=== PATIENT | male | born 1940 | race Two or more races ===

== ENCOUNTER 2024-01-10 19:01 | Inpatient (IN) | payer MEDICARE, MEDICAID ==
[~2024-01-10] VITALS: Ht 180.3 cm; Wt 104.5 kg
[~2024-01-10 19:01] MED LIST: ALLO100T PO; AMLO1TAB21 PO; ATOR20TA PO; BACL10TA PO; FLUT1AER3 IN; FURO1TAB77 PO; METO5TAB5 PO; NALO1TAB4 PO; OXYC15TA77 PO; POTA-228 PO; SPIR25TA8 PO; WARF4TAB70 PO
[2024-01-10] MEDS: SODIUM CHLORIDE 0.9% 500 ML IVB ONE (20:06)
[2024-01-10 20:11] LABS: Basophils # (auto) 0 10 ^3/uL (0-0.2); Basophils % (auto) 0.1 % (0.0-2.0); Eosinophils # (auto) 0 10 ^3/uL (0-0.8); Hematocrit 37.5 % (41.0-53.0); Hemoglobin 12.5 g/dL (13.5-17.5); Lymphocytes # (auto) 1.2 10 ^3/uL (0.4-5.4); Lymphocytes % (auto) 6.6 % (10.0-50.0); Mean Corpuscular Hgb Conc. 33.3 g/dL (32.0-36.0); Mean Corpuscular Volume 102.4 fL (80.0-100.0); Monocytes % (auto) 5.7 % (0.0-12.0); Neutrophils # (auto) 15.4 10 ^3/uL (1.6-8.6); Neutrophils % (auto) 87.6 % (37.0-80.0); Nucleated Red Blood Cells % 0.1 %; Platelet Count (auto) 196 10^3/uL (140-450); Red Blood Cells 3.66 10^6/uL (4.5-5.90); Red Cell Distribution Width 15.2 % (11.8-14.3); White Blood Cell 17.6 10^3/uL (4.4-10.8)
[2024-01-10 20:15] LABS: Base Excess 1.6 mmol/L (-2.0-3.0)
[2024-01-10 20:31] LABS: Alanine Aminotransferase 15 U/L (7-40); Albumin 4.3 g/dL (3.2-4.8); Alkaline Phosphatase 107 U/L (46-116); Anion Gap 10 (5-15); Aspartate Aminotransferase 32 U/L (13-40); BUN/Creatinine Ratio 11.3 (10.0-20.0); Blood Alcohol < 3.0 mg/dL (<10); Blood Urea Nitrogen 17 mg/dL (9-23); Calcium 9.5 mg/dL (8.7-10.4); Carbon Dioxide 23 mmol/L (20-31); Chloride 112 mmol/L (98-107); Glucose 125 mg/dL (74-106); Potassium 3.2 mmol/L (3.5-5.1); Sodium 145 mmol/L (136-145)
[2024-01-10 20:32] LABS: Bilirubin, Total 1.5 mg/dL (0.2-1.0)
[2024-01-10] MEDS: cefTRIAXone 1GM/50ML D5W 50 ML IV ONE (21:28)
[2024-01-10] MEDS ORDERED: IPRATROPIUM BROM 0.5 MG/2.5ML INH SOL NEB PRN (22:15)
[2024-01-10] MEDS ORDERED: DEXTROSE (50%) 50ML SYRG IV PRN (22:15)
[2024-01-10] MEDS ORDERED: ONDANSETRON HCL 4 MG/2 ML VIAL IV PRN (22:15)
[2024-01-10] MEDS ORDERED: ALBUTEROL SULF 2.5 MG/0.5ML(0.5%) NEB SOLN NEB PRN (22:15)
[2024-01-10] MEDS ORDERED: PIPERACILLIN-TAZOB 3.375GM 100 ML IV ONE (22:15)
[2024-01-10] MEDS ORDERED: VANCOMYCIN PER PHARMACY 0 MG IV SCH (22:30)
[2024-01-10 22:32] LABS: Urine Bacteria None Seen /hpf (None Seen)
[2024-01-10] MEDS: VANCOMYCIN 1GM/200ML PREMIX 250 ML IV ONE (22:44)
[2024-01-10] MEDS: SODIUM CHLORIDE 0.9% 500 ML IV ONE (22:45)
[2024-01-10 22:49] LABS: Folate (Folic Acid) 8.22 ng/mL (>5.38)
[2024-01-10] MEDS: POTASSIUM CHL 20MEQ/100ML 100 ML IV SCH (22:51)
[2024-01-10 22:56] LABS: Urine Blood 2+ /uL (Negative); Urine Clarity Clear (Clear); Urine Color Light-Yellow (Yellow); Urine Hyaline Cast FEW /lpf (0 - 2); Urine Mucus FEW (None Seen); Urine Protein, UAD TRACE (Negative); Urine Specific Gravity 1.014 (1.001-1.035); Urine Urobilinogen Normal (Negative); Urine WBC <1 /hpf (0 - 3)
[2024-01-10 22:58] LABS: Amphetamine Screen, Urine Neg (NEGATIVE); Barbiturate Scree,Urine Neg (NEGATIVE); Benzodiazephine Screen, Urine Neg (NEGATIVE); Cocaine Screen, Urine Neg (NEGATIVE); Opiate Scree,Urine Neg (NEGATIVE); Phencyclidine Screen, Urine Neg (NEGATIVE)
[2024-01-10 22:59] LABS: Cannabinoid Screen, Urine Neg (NEGATIVE)
[2024-01-10] MEDS ORDERED: DOXYCYCLINE 100MG/250ML 250 ML IV SCH (23:00)
[2024-01-10] MEDS: ENOXAPARIN SOD 120 MG/0.8 ML SYRINGE SC ONE (23:23)
[2024-01-11] VITALS (12 sets, daily range): BP systolic 113–142; BP diastolic 56–78; PULSE 66–88; RESP 16–23; TEMP 97.7–99.9; O2SAT 90–98
[2024-01-11] MEDS: ACCU-CHEK COMFORT CURVE STRIP VI SCH
[2024-01-11 00:57] LABS: Rapid Influenza A Negative (Negative); Rapid Influenza B Negative (Negative)
[2024-01-11 00:58] LABS: COVID19 ANTIGEN SOFIA FIA NEGATIVE (NEGATIVE)
[2024-01-11] MEDS: IOHEXOL 350 MG/ML 100ML IJ ONE (01:22)
[2024-01-11] MEDS: InsuLIN REG 1unit/0.01ml Soln (100units/ml) SC SCH (01:37)
[2024-01-11] MEDS: ENOXAPARIN SOD 120 MG/0.8 ML SYRINGE SC SCH (02:14)
[2024-01-11 05:38] LABS: Basophils # (auto) 0 10 ^3/uL (0-0.2); Basophils % (auto) 0.1 % (0.0-2.0); Eosinophils # (auto) 0 10 ^3/uL (0-0.8); Eosinophils % (auto) 0.1 % (0.0-7.0); Hematocrit 33.6 % (41.0-53.0); Hemoglobin 11.4 g/dL (13.5-17.5); Lymphocytes % (auto) 6.2 % (10.0-50.0); Mean Corpuscular Hemoglobin 34.5 pg (28.0-32.0); Mean Corpuscular Hgb Conc. 33.9 g/dL (32.0-36.0); Mean Corpuscular Volume 101.7 fL (80.0-100.0); Monocytes # (auto) 0.8 10 ^3/uL (0-1.3); Monocytes % (auto) 5.2 % (0.0-12.0); Neutrophils # (auto) 14.2 10 ^3/uL (1.6-8.6); Neutrophils % (auto) 88.4 % (37.0-80.0); Platelet Count (auto) 178 10^3/uL (140-450); Red Cell Distribution Width 15.1 % (11.8-14.3)
[2024-01-11] MEDS ORDERED: PIPERACILLIN-TAZOB 3.375GM 100 ML IV SCH (06:00)
[2024-01-11 06:33] LABS: Alanine Aminotransferase 14 U/L (7-40); Albumin 3.7 g/dL (3.2-4.8); Alkaline Phosphatase 98 U/L (46-116); Anion Gap 10 (5-15); Aspartate Aminotransferase 33 U/L (13-40); BUN/Creatinine Ratio 16.3 (10.0-20.0); Blood Urea Nitrogen 20 mg/dL (9-23); Calcium 8.8 mg/dL (8.7-10.4); Carbon Dioxide 23 mmol/L (20-31); Chloride 113 mmol/L (98-107); Glucose 113 mg/dL (74-106); Potassium 3.3 mmol/L (3.5-5.1); Sodium 146 mmol/L (136-145); Total Protein 6.8 g/dL (5.7-8.2)
[2024-01-11] MEDS: VANCOMYCIN 1GM/200ML PREMIX 250 ML IV SCH (09:09)
[2024-01-11] MEDS ORDERED: MEROPENEM 1GM IVPB 50 ML IV SCH (10:00)
[2024-01-11] MEDS ORDERED: ENOXAPARIN SOD 40 MG/0.4 ML SYRINGE SC SCH (10:00)
[2024-01-11] MEDS: MEROPENEM 1GM IVPB 50 ML IV SCH (10:14)
[2024-01-11] MEDS: FUROSEMIDE 40 MG/4 ML VIAL IV SCH (18:07)
[2024-01-12] VITALS (9 sets, daily range): BP systolic 114–150; BP diastolic 62–76; PULSE 59–88; RESP 16–20; TEMP 97.6–98.8; O2SAT 94–96
[2024-01-12 04:38] LABS: Basophils # (auto) 0 10 ^3/uL (0-0.2); Eosinophils # (auto) 0.2 10 ^3/uL (0-0.8); Lymphocytes # (auto) 1.9 10 ^3/uL (0.4-5.4); Mean Corpuscular Hgb Conc. 33.6 g/dL (32.0-36.0)
[2024-01-12 04:40] LABS: Basophils % (auto) 0.5 % (0.0-2.0); Eosinophils % (auto) 2.3 % (0.0-7.0); Hematocrit 33.5 % (41.0-53.0); Hemoglobin 11.2 g/dL (13.5-17.5); Lymphocytes % (auto) 21.1 % (10.0-50.0); Mean Corpuscular Volume 101.3 fL (80.0-100.0); Monocytes # (auto) 0.6 10 ^3/uL (0-1.3); Monocytes % (auto) 6.4 % (0.0-12.0); Neutrophils # (auto) 6.2 10 ^3/uL (1.6-8.6); Neutrophils % (auto) 69.7 % (37.0-80.0); Platelet Count (auto) 197 10^3/uL (140-450); Red Blood Cells 3.31 10^6/uL (4.5-5.90); Red Cell Distribution Width 15.3 % (11.8-14.3)
[2024-01-12] MEDS: POTASSIUM CHL 20MEQ/100ML 100 ML IV SCH (05:44)
[2024-01-12 07:42] LABS: INR 2.72 (0.9-1.15); Partial Thromboplastin Time 61.2 SEC (24.5-34.5); Prothrombin Time 26.8 sec (9.3-11.8)
[2024-01-12 07:53] LABS: Chloride 113 mmol/L (98-107); Potassium 3.2 mmol/L (3.5-5.1); Sodium 147 mmol/L (136-145)
[2024-01-12 07:54] LABS: Anion Gap 8 (5-15); Calcium 8.7 mg/dL (8.7-10.4); Carbon Dioxide 26 mmol/L (20-31)
[2024-01-12 07:59] LABS: BUN/Creatinine Ratio 17.7 (10.0-20.0); Blood Urea Nitrogen 20 mg/dL (9-23); Glucose 84 mg/dL (74-106)
[2024-01-12] MEDS ORDERED: VANCOMYCIN 1GM/200ML PREMIX 200 ML IV SCH (09:45)
[2024-01-12] MEDS: SPIRONOLACTONE 25 MG TAB PO SCH (09:57)
[2024-01-12] MEDS: amLODIPine BESYLATE 5 MG TAB PO SCH (09:58)
[2024-01-12] MEDS: VANCOMYCIN 1GM/200ML PREMIX IV SCH (10:13)
[2024-01-12] MEDS: POTASSIUM CHLORIDE 60 MEQ, LIDOCAINE 1% (LOCAL ANESTH.) 6 ML in SODIUM CHL 0.9% 500 ML IV ONE (10:14)
[2024-01-12 15:40] LABS: INR 2.42 (0.9-1.15); Partial Thromboplastin Time 50.8 SEC (24.5-34.5)
[2024-01-12] MEDS ORDERED: CHOL1TAB30 PO (17:18)
[2024-01-12] MEDS: OXYCODONE W/ ACETAMINOPHEN 5/325MG TABLET PO PRN (18:49)
[2024-01-12] MEDS: POTASSIUM CHL 20 Meq TABLET PO ONE (19:42)
[2024-01-12] MEDS: ATORVASTATIN 20 MG TAB PO SCH (22:33)
[2024-01-13] VITALS (9 sets, daily range): BP systolic 107–137; BP diastolic 59–72; PULSE 53–85; RESP 17–20; TEMP 97.7–98.8; O2SAT 92–98
[2024-01-13 07:34] LABS: Basophils # (auto) 0 10 ^3/uL (0-0.2); Basophils % (auto) 0.6 % (0.0-2.0); Eosinophils # (auto) 0.3 10 ^3/uL (0-0.8); Hematocrit 32.1 % (41.0-53.0); Lymphocytes # (auto) 1.3 10 ^3/uL (0.4-5.4); Mean Corpuscular Hemoglobin 34.8 pg (28.0-32.0); Mean Corpuscular Hgb Conc. 34.4 g/dL (32.0-36.0); Mean Corpuscular Volume 101.1 fL (80.0-100.0); Monocytes # (auto) 0.4 10 ^3/uL (0-1.3); Monocytes % (auto) 7.4 % (0.0-12.0); Neutrophils # (auto) 3.9 10 ^3/uL (1.6-8.6); Nucleated Red Blood Cells % 0.1 %; Platelet Count (auto) 212 10^3/uL (140-450); Red Blood Cells 3.17 10^6/uL (4.5-5.90); Red Cell Distribution Width 14.4 % (11.8-14.3)
[2024-01-13 07:49] LABS: Alanine Aminotransferase 12 U/L (7-40); Albumin 3.3 g/dL (3.2-4.8); Alkaline Phosphatase 84 U/L (46-116); Anion Gap 7 (5-15); Aspartate Aminotransferase 23 U/L (13-40); BUN/Creatinine Ratio 20.6 (10.0-20.0); Blood Urea Nitrogen 22 mg/dL (9-23); Carbon Dioxide 25 mmol/L (20-31); Chloride 111 mmol/L (98-107); GFR African American 85 mL/min; GFR Non-African American 70 mL/min; Glucose 99 mg/dL (74-106); Potassium 3.9 mmol/L (3.5-5.1); Sodium 143 mmol/L (136-145)
[2024-01-13 07:50] LABS: Bilirubin, Total 0.7 mg/dL (0.2-1.0); Phosphorus 2.9 mg/dL (2.4-5.1); Total Protein 5.9 g/dL (5.7-8.2)
[2024-01-13 07:54] LABS: INR 2.36 (0.9-1.15); Partial Thromboplastin Time 50.6 SEC (24.5-34.5); Prothrombin Time 23.5 sec (9.3-11.8)
[2024-01-13] MEDS: CHOLECALCIFEROL (VITD3) 1,000UNIT=25mCg TAB PO SCH (10:39)
[2024-01-13] MEDS: ACETAMINOPHEN 325 MG TAB PO PRN (20:40)
[2024-01-14] VITALS (8 sets, daily range): BP systolic 101–127; BP diastolic 55–76; PULSE 55–69; RESP 15–20; TEMP 97.8–98.4; O2SAT 94–97
[2024-01-14 07:40] LABS: Basophils # (auto) 0 10 ^3/uL (0-0.2); Eosinophils # (auto) 0.3 10 ^3/uL (0-0.8); Hemoglobin 11.7 g/dL (13.5-17.5); Lymphocytes # (auto) 1.8 10 ^3/uL (0.4-5.4); Monocytes # (auto) 0.4 10 ^3/uL (0-1.3); Neutrophils # (auto) 1.9 10 ^3/uL (1.6-8.6)
[2024-01-14 07:42] LABS: Basophils % (auto) 0.6 % (0.0-2.0); Eosinophils % (auto) 7.1 % (0.0-7.0); Lymphocytes % (auto) 40.8 % (10.0-50.0); Mean Corpuscular Hemoglobin 34.6 pg (28.0-32.0); Mean Corpuscular Hgb Conc. 34.4 g/dL (32.0-36.0); Mean Corpuscular Volume 100.6 fL (80.0-100.0); Monocytes % (auto) 9.3 % (0.0-12.0); Neutrophils % (auto) 42.2 % (37.0-80.0); Platelet Count (auto) 211 10^3/uL (140-450); Red Blood Cells 3.38 10^6/uL (4.5-5.90); Red Cell Distribution Width 14.6 % (11.8-14.3); White Blood Cell 4.4 10^3/uL (4.4-10.8)
[2024-01-14 07:51] LABS: Calcium 8.4 mg/dL (8.7-10.4); Chloride 107 mmol/L (98-107); Potassium 3.2 mmol/L (3.5-5.1); Sodium 141 mmol/L (136-145)
[2024-01-14 07:52] LABS: Anion Gap 9 (5-15); Carbon Dioxide 25 mmol/L (20-31)
[2024-01-14 07:57] LABS: BUN/Creatinine Ratio 20.2 (10.0-20.0); Blood Urea Nitrogen 21 mg/dL (9-23); Glucose 102 mg/dL (74-106); INR 1.74 (0.9-1.15); Prothrombin Time 17.7 sec (9.3-11.8)
[2024-01-14] MEDS: POTASSIUM CHLORIDE 60 MEQ, LIDOCAINE 1% (LOCAL ANESTH.) 6 ML in SODIUM CHL 0.9% 500 ML IV ONE (10:48)
[2024-01-14] MEDS: ENOXAPARIN SOD 120 MG/0.8 ML SYRINGE SC SCH (15:39)
[2024-01-14 19:49] LABS: INR 1.56 (0.9-1.15)
[2024-01-15] VITALS (10 sets, daily range): BP systolic 103–129; BP diastolic 49–71; PULSE 56–77; RESP 18–21; TEMP 97.4–98.2; O2SAT 93–98
[2024-01-15 05:19] LABS: Basophils # (auto) 0.1 10 ^3/uL (0-0.2); Basophils % (auto) 0.9 % (0.0-2.0); Eosinophils # (auto) 0.3 10 ^3/uL (0-0.8); Hematocrit 33.2 % (41.0-53.0); Hemoglobin 11.4 g/dL (13.5-17.5); Lymphocytes # (auto) 2.4 10 ^3/uL (0.4-5.4); Lymphocytes % (auto) 40.9 % (10.0-50.0); Mean Corpuscular Hemoglobin 34.7 pg (28.0-32.0); Mean Corpuscular Hgb Conc. 34.4 g/dL (32.0-36.0); Mean Corpuscular Volume 100.8 fL (80.0-100.0); Monocytes # (auto) 0.6 10 ^3/uL (0-1.3); Monocytes % (auto) 9.4 % (0.0-12.0); Neutrophils # (auto) 2.6 10 ^3/uL (1.6-8.6); Neutrophils % (auto) 43.8 % (37.0-80.0); Platelet Count (auto) 236 10^3/uL (140-450); Red Blood Cells 3.29 10^6/uL (4.5-5.90); Red Cell Distribution Width 14.4 % (11.8-14.3); White Blood Cell 5.9 10^3/uL (4.4-10.8)
[2024-01-15 05:31] LABS: Anion Gap 6 (5-15); Carbon Dioxide 27 mmol/L (20-31); Chloride 107 mmol/L (98-107); Potassium 3.7 mmol/L (3.5-5.1); Sodium 140 mmol/L (136-145)
[2024-01-15 05:32] LABS: Calcium 8.6 mg/dL (8.7-10.4)
[2024-01-15 05:37] LABS: Blood Urea Nitrogen 26 mg/dL (9-23); Glucose 116 mg/dL (74-106)
[2024-01-16] VITALS (15 sets, daily range): BP systolic 107–121; BP diastolic 56–78; PULSE 58–74; RESP 14–20; TEMP 97.5–98.1; O2SAT 93–100
[2024-01-16 07:30] LABS: Anion Gap 8 (5-15); Carbon Dioxide 24 mmol/L (20-31); Chloride 107 mmol/L (98-107); Potassium 3.7 mmol/L (3.5-5.1); Sodium 139 mmol/L (136-145)
[2024-01-16 07:32] LABS: Calcium 8.6 mg/dL (8.7-10.4)
[2024-01-16 07:36] LABS: Glucose 89 mg/dL (74-106)
[2024-01-16 07:37] LABS: BUN/Creatinine Ratio 22.2 (10.0-20.0); Blood Urea Nitrogen 26 mg/dL (9-23)
[2024-01-16 08:00] LABS: Eosinophils # (auto) 0.3 10 ^3/uL (0-0.8)
[2024-01-16 08:02] LABS: Basophils # (auto) 0 10 ^3/uL (0-0.2); Basophils % (auto) 0.7 % (0.0-2.0); Eosinophils % (auto) 5.1 % (0.0-7.0); Hemoglobin 11.6 g/dL (13.5-17.5); Lymphocytes # (auto) 2.6 10 ^3/uL (0.4-5.4); Lymphocytes % (auto) 42.3 % (10.0-50.0); Mean Corpuscular Hemoglobin 34.4 pg (28.0-32.0); Mean Corpuscular Hgb Conc. 34.1 g/dL (32.0-36.0); Monocytes # (auto) 0.6 10 ^3/uL (0-1.3); Monocytes % (auto) 9.6 % (0.0-12.0); Neutrophils # (auto) 2.6 10 ^3/uL (1.6-8.6); Neutrophils % (auto) 42.3 % (37.0-80.0); Nucleated Red Blood Cells % 0.1 %; Platelet Count (auto) 247 10^3/uL (140-450); Red Blood Cells 3.37 10^6/uL (4.5-5.90); Red Cell Distribution Width 14.9 % (11.8-14.3)
[2024-01-16] MEDS: HEPARIN IN NS 1000Units/500mL 1,500 ML ONE (12:41)
[2024-01-16] MEDS: ANGIOMAX 250 MG VIAL IV ONE (12:45)
[2024-01-16] MEDS: fentaNYL CITRATE 100 MCG/2 ML VL ONE (12:45)
[2024-01-16] MEDS: SODIUM CHL 0.9% 0 ML ONE (12:46)
[2024-01-16] MEDS: MIDAZOLAM HCL 2MG/2ML 2ml VIAL (1mg/ml) ONE (12:46)
[2024-01-16] MEDS: LIDOCAINE 2%HCL (LOCAL ANESTH.) INJ 20ML MDV ONE (12:46)
[2024-01-16] MEDS: ALBUTEROL SULF 2.5 MG/0.5ML(0.5%) NEB SOLN NEB SCH (13:03)
[2024-01-16] MEDS: IPRATROPIUM BROM 0.5 MG/2.5ML INH SOL NEB SCH (13:03)
[2024-01-16] MEDS: CEPHALEXIN 250 MG CAP PO SCH (14:49)
[2024-01-17] VITALS (19 sets, daily range): BP systolic 114–128; BP diastolic 59–72; PULSE 58–106; RESP 16–20; TEMP 97.6–99; O2SAT 91–100
[2024-01-17 11:45] LABS: INR 1.08 (0.9-1.15); Partial Thromboplastin Time 21.7 SEC (24.5-34.5); Prothrombin Time 11.4 sec (9.3-11.8)
[2024-01-17] MEDS: WARFARIN SODIUM 2.5 MG TAB PO ONE (21:26)
[2024-01-17] MEDS: ENOXAPARIN SOD 100 MG/1 ML SYRINGE SC SCH (23:26)
[2024-01-18] VITALS (14 sets, daily range): BP systolic 107–147; BP diastolic 64–79; PULSE 61–94; RESP 13–20; TEMP 97.9–98.3; O2SAT 93–100
[2024-01-18 05:43] LABS: INR 1.09 (0.9-1.15); Partial Thromboplastin Time 34.5 SEC (24.5-34.5); Prothrombin Time 11.5 sec (9.3-11.8)
[2024-01-18] MEDS ORDERED: WARFARIN SODIUM 1 MG TAB PO SCH (10:00)
[2024-01-18] MEDS: WARFARIN SODIUM 2.5 MG TAB PO ONE (17:00)
[2024-01-18] MEDS ORDERED: FUROSEMIDE 40 MG TAB PO SCH (22:00)
== END 2024-01-18 20:14 | DRG 871 ==
LOC: EDBD 19:01 → ER 19:01 → TELE 22:06 → TELE-WESTW 01-11 04:25 → WEST WING 01-18 13:40
PROVIDERS: ADMIT Internal Medicine; ATTEND Internal Medicine
PROC: B51BYZZ Fluoroscopy of Right Lower Extremity Veins using Other Contrast (ICD-10-PCS; principal; 2024-01-16)
DX: A41.9 Sepsis, unspecified organism (principal); G93.41 Metabolic encephalopathy; N17.0 Acute kidney failure with tubular necrosis; I50.33 Acute on chronic diastolic (congestive) heart failure; L03.116 Cellulitis of left lower limb; L03.115 Cellulitis of right lower limb; I82.431 Acute embolism and thrombosis of right popliteal vein; I82.411 Acute embolism and thrombosis of right femoral vein; E87.20 Acidosis, unspecified; I82.501 Chronic embolism and thrombosis of unspecified deep veins of right lower extremity; Z20.822 Contact with and (suspected) exposure to COVID-19; E87.6 Hypokalemia; I11.0 Hypertensive heart disease with heart failure; I45.10 Unspecified right bundle-branch block; E11.9 Type 2 diabetes mellitus without complications; E66.9 Obesity, unspecified; M10.9 Gout, unspecified; J32.2 Chronic ethmoidal sinusitis; J44.9 Chronic obstructive pulmonary disease, unspecified; Z68.34 Body mass index [BMI] 34.0-34.9, adult; Z79.899 Other long term (current) drug therapy
CPT/HCPCS: 36012; 36415; 36600; 70450; 71045; 71275; 73700; 76604; 80048; 80053; 80069; 80202; 80307; 80320; 81001; 82565; 82607; 82746; 82805; 82962; 83036; 83605; 83735; 83880; 84132; 84439; 84443; 84484; 84550; 85025; 85610; 85730; 86850; 86900; 86901; 87040; 87081; 87086; 87426; 87804; 93005; 93306; 93886; 93970; 94640; 99152; 99291; C1894; G0378; J1815; J2003; J2185; J2250; J3480

== ENCOUNTER 2024-06-01 14:43 | Emergency (ER) | payer MEDICARE, MEDICAID ==
[~2024-06-01] VITALS: Ht 177.8 cm; Wt 116.0 kg
[~2024-06-01 14:43] MED LIST changes: +CHOL1TAB30 PO
--- NOTE | 2024-06-01 15:26 | ED.PDOC ---
Musculoskeletal HPI Comments 83 year old male presents to the ED with chief complaint of leg wound. Patient reports that he has been experiencing a wound to his right leg for the past week along with associated bilateral leg swelling which has been present for a long time. Patient relays that he has not seen his PCP regarding this concern and has received no antibiotic treatment. Patient states that the wound drains fluid. Patient notes he is currently on Lasix for his bilateral leg swelling. Patient denies any numbness, weakness, red streaking, fever, or chills.Patient's tetanus is not up-to-date. Vital signs were stable on arrival. Chief Complaint: Lower Extremity Time Seen by MD: 15:18 Reviewed Notes: Nurses Notes, Medications, Allergies Allergies: Coded Allergies: No Known Drug Allergy (Verified Allergy, Unknown, 01/15/24) Home Meds Reported Medications Metolazone (Metolazone) 5 Mg Tab, 1 TAB PO DAILY for 90 Days, #90 01/12/24 Furosemide (Furosemide 80 mg) 1 Tab Tab, 1 TAB PO BID for 90 Days, #180 01/12/24 Amlodipine Besylate (Amlodipine Besylate) 2.5 Mg Tab, 1 TAB PO DAILY for 90 Days, #90 01/12/24 Cholecalciferol (Gnp Vitamin D) 1,000 Unit Tab, 1 TAB PO DAILY for 90 Days, #90 01/12/24 Allopurinol (Allopurinol) 100 Mg Tab, 1 TAB PO DAILY for 90 Days, #90 01/12/24 Atorvastatin Calcium (Lipitor) 20 Mg Tab, 1 TAB PO DAILY for 90 Days, #90 01/12/24 Spironolactone (Spironolactone) 25 Mg Tab, 1 TAB PO DAILY PRN for bid for 90 Days, #180 01/12/24 Naloxegol Oxalate (Movantik) 25 Mg Tab, 1 TAB PO DAILY for 30 Days, #30 01/12/24 Auyzogyphfu-Dntqlqotlxmv-Fhsxt (Trelegy Ellipta 100-62.5-25 Mcg/INH) 1 Aer Aer, 1 PUFF IN DAILY for 30 Days, #60 01/12/24 Warfarin Sodium (Warfarin Sodium) 1 Mg Tab, 1 TAB PO DAILY for 90 Days, #90 01/12/24 Potassium Chloride (Potassium Chloride ER) 10 Meq Tab, 2 TAB PO BID for 90 Days, #360 01/12/24 Baclofen (Baclofen) 10 Mg Tab, 1 TAB PO Q8HR for 30 Days, #90 01/12/24 Oxycodone HCl (Oxycontin) 15 Mg Tab, 1 TAB PO BID for 15 Days, #30 01/12/24 Information Source: Patient Mode of Arrival: Ambulatory Location: Right Extremity Location: Leg Timing: Weeks Prehospital treatment: None Severity: Moderate Able to Move Extremity: Yes Bear Weight: Fully Pain: Moderate Mechanism: Spontaneous Circumstances: Preceding Wound Onset of Symptoms: Spontaneous Symptoms: Swelling, Pain, Erythema DVT Risk Factors: CHF Last Tetanus: Unknown Past Medical History PAST MEDICAL HISTORY: CHF, COPD, DM Surgical History: Denies all surgeries Family History Family History: Reviewed,noncontributory to illness Social History Smoker: Non-Smoker Alcohol: Denies ETOH Use Drugs: Denies Drug Use Lives In: Home Constitutional: denies: chills, diaphoresis, fatigue, fever, malaise, sweats, weakness, others EENTM: denies: blurred vision, double vision, ear bleeding, ear discharge, ear drainage, ear pain, ear ringing, eye pain, eye redness, hearing loss, mouth pain, mouth swelling, nasal discharge, nose bleeding, nose congestion, nose pain, photophobia, tearing, throat pain, throat swelling, voice changes, others Respiratory: denies: cough, hemoptysis, orthopnea, SOB at rest, shortness of breath, SOB with excertion, stridor, wheezing, others Cardiovascular: reports: edema; denies: chest pain, dizzy spells, diaphoresis, Dyspnea on exertion, irregular heart beat, left arm pain, lightheadedness, palpitations, PND, syncope, others Gastrointestinal: denies: abdomen distended, abdominal pain, blood streaked bowels, constipated, diarrhea, dysphagia, difficulty swallowing, hematemesis, melena, nausea, poor appetite, poor fluid intake, rectal bleeding, rectal pain, vomiting, others Genitourinary: denies: burning, dysuria, flank pain, frequency, hematuria, incontinence, penile discharge, penile sore, pain, testicle pain, testicle s welling, urgency, others Neurological: denies: dizziness, fainting, headache, left sided numbness, left sided weakness, numbness, paresthesia, pre-existing deficit, right sided numbness, right sided weakness, seizure, speech problems, tingling, tremors, weakness, others Musculoskeletal: denies: back pain, gout, joint pain, joint swelling, muscle pain, muscle stiffness, neck pain, others Integumetry: reports: wounds (Patient displays bilateral lower extremity brawny edema with a weeping wound noted to the anterior aspect of the lower right leg and healing wounds on the left leg); denies: bruises, change in color, change in hair/nails, dryness, laceration, lesions, lumps, rash, others Allergic/Immunocompromised: denies: Difficulty Healing, Frequent Infections, Hives, Itching, others Hematologic/Lymphatic: denies: anemia, blood clots, easy bleeding, easy bruising, swollen glands, others Endocrine: denies: excessive hunger, excessive sweating, excessive thirst, excessive urination, flushing, intolerance to cold, intolerance to heat, unexplained weight gain, unexplained weight loss, others Psychiatric: denies: anxiety, bipolar disorder, depression, hopeless, panic disorder, schizophrenia, sleepless, suicidal, others All Other Systems: Reviewed and Negative Physical Exam General Appearance: No Apparent Distress ( patient was in no distress at time of evaluation. Patient had anxiety related to his weeping wound), Obese HEENT: Normal ENT Inspection, Pharynx Normal, TMs Normal Neck: Full Range of Motion, Non-Tender, Normal, Normal Inspection Respiratory: Chest Non-Tender, Lungs Clear, No Accessory Muscle Use, No Respiratory Distress, Normal Breath Sounds Cardiovascular: No Edema, No JVD, No Murmur, No Gallop, Normal Peripheral Pulses, Regular Rate/Rhythm Breast Exam: Deferred Gastrointestinal: No Organomegaly, Non Tender, No Pulsatile Mass, Normal Bowel Sounds, Soft Genitalia: Deferred Pelvic: Deferred Rectal: Deferred Extremities: Other ( patient displays brawny edema to bilateral lower extremities with wounds noted throughout. Patient has a silver dollar sized weeping wound to the anterior aspect of his right lower extremity. Serosanguineous fluid noted. Mild 1+ pitting edema appreciated bilaterally.) Neurologic: Alert, No Motor Deficits, Normal Affect, Normal Mood, No Sensory Deficits Cerebellar Function: Normal Reflexes: Normal Skin: Dry, Normal Color, Warm Lymphatic: No Adenopathy Was a procedure done? Was a procedure done?: No Differential Diagnosis EXT Differential Diagnosis: Cellulitis, CHF, Other ( Sepsis, bilateral lower extremity edema) X-Ray, Labs, Meds, VS Vital Signs Date Time Temp Pulse Resp B/P (MAP) Pulse Ox O2 Delivery O2 Flow Rate FiO2 06/01/24 16:03 98.7 75 20 125/68 (87) 92 98.7 06/01/24 16:03 75 20 92 Room Air 06/01/24 15:15 97.5 82 20 141/68 (92) 96 Lab Test 06/01/24 15:20 Range/Units White Blood Count 6.8 4.4-10.8 10^3/uL Red Blood Count 3.52 L 4.5-5.90 10^6/uL Hemoglobin 11.8 L 13.5-17.5 g/dL Hematocrit 35.0 L 41.0-53.0 % Mean Corpuscular Volume 99.3 80.0-100.0 fL Mean Corpuscular Hemoglobin 33.5 H 28.0-32.0 pg Mean Corpuscular Hemoglobin Concent 33.7 32.0-36.0 g/dL Red Cell Distribution Width 15.4 H 11.8-14.3 % Platelet Count 253 140-450 10^3/uL Mean Platelet Volume 7.6 6.9-10.8 fL Neutrophils (%) (Auto) 42.2 37.0-80.0 % Lymphocytes (%) (Auto) 42.3 10.0-50.0 % Monocytes (%) (Auto) 11.9 0.0-12.0 % Eosinophils (%) (Auto) 2.9 0.0-7.0 % Basophils (%) (Auto) 0.7 0.0-2.0 % Neutrophils # (Auto) 2.9 1.6-8.6 10 ^3/uL Lymphocytes # (Auto) 2.9 0.4-5.4 10 ^3/uL Monocytes # (Auto) 0.8 0-1.3 10 ^3/uL Eosinophils # (Auto) 0.2 0-0.8 10 ^3/uL Basophils # (Auto) 0 0-0.2 10 ^3/uL Nucleated Red Blood Cells 0.1 % Sodium Level 140 136-145 mmol/L Potassium Level 3.5 3.5-5.1 mmol/L Chloride Level 103 98-107 mmol/L Carbon Dioxide Level 29 20-31 mmol/L Anion Gap 8 5-15 Blood Urea Nitrogen 18 9-23 mg/dL Creatinine 1.18 0.700-1.30 mg/dL Glomerular Filtration Rate Calc 62 >90 mL/min BUN/Creatinine Ratio 15.3 10.0-20.0 Serum Glucose 86 74-106 mg/dL Lactic Acid Level 1.6 0.4-2.0 mmol/L Calcium Level 8.6 L 8.7-10.4 mg/dL B-Type Natriuretic Peptide 71.48 0-100 pg/mL Lipase 46 12-53 U/L Current Medications Medications (Trade) Dose Ordered Sig/Oralia Route Start Time Stop Time Status Last Admin Diphtheria/ Tetanus/Acell Pertussis (Boostrix T-Dap) 0.5 ml ONCE ONCE IM 06/01/24 15:15 06/01/24 15:16 DC 06/01/24 16:06 X-Ray, Labs, Meds, VS Comment Laboratories were evaluated by me personally and found to be unremarkable for any systemic process. Patient will be sent home with oral antibiotics to add ress his right leg wound. Patient has been advised to utilize medication as directed and if his wound does not improve after several days of antibiotic use, return to ED for re-evaluation. Patient has been advised to follow up with his primary care provider once antibiotics are completed for re-evaluation. Patient should continue on Lasix as directed by primary care provider as his CHF looks to be reasonably controlled. Time of 1ST Reevaluation: 16:14 Reevaluation 1ST: Unchanged Consultation: PCP Patient Education/Counseling: Diagnosis, Treatment Family Education/Counseling: Diagnosis, Treatment Departure 1 Departure Time of Disposition: 16:15 Impression: Primary Impression: Cellulitis Disposition: 01 HOME / SELF CARE / HOMELESS Condition: Stable Additional Instructions: Advised patient utilize antibiotics as directed until completion as well as maintaining clean wounds with clean dressing. If wounds do not improve after one week of antibiotic use, return to ED for re-evaluation. Patient should follow up with his primary care provider once antibiotics are complete for re- evaluation. e-Prescriptions Clindamycin Hcl (Clindamycin Hcl) 300 Mg Cap 300 MG PO QID for 10 Days, #40 CAP Prov: GLEN ARMSTRONG PAC 06/01/24 Discharged With: Self, Friend Critical Care Note Critical Care Time?: No Stability Stability form required: No Heart Score Heart Score: Heart Score Response (Comments) Value History N/A 0 EKG N/A 0 Age N/A 0 Risk Factors N/A 0 Troponin N/A 0 Total 0 I personally scribed for GLEN ARMSTRONG PAC ([email or web address]) on 06/01/24 at 15:26. Electronically submitted by Fareed Morales ([email or web address]). GLEN ARMSTRONG PAC Jun 01, 2024 15:26
[2024-06-01 15:44] LABS: Basophils # (auto) 0 10 ^3/uL (0-0.2); Basophils % (auto) 0.7 % (0.0-2.0); Eosinophils # (auto) 0.2 10 ^3/uL (0-0.8); Eosinophils % (auto) 2.9 % (0.0-7.0); Hemoglobin 11.8 g/dL (13.5-17.5); Lymphocytes # (auto) 2.9 10 ^3/uL (0.4-5.4); Lymphocytes % (auto) 42.3 % (10.0-50.0); Mean Corpuscular Hemoglobin 33.5 pg (28.0-32.0); Mean Corpuscular Hgb Conc. 33.7 g/dL (32.0-36.0); Mean Corpuscular Volume 99.3 fL (80.0-100.0); Monocytes # (auto) 0.8 10 ^3/uL (0-1.3); Monocytes % (auto) 11.9 % (0.0-12.0); Neutrophils # (auto) 2.9 10 ^3/uL (1.6-8.6); Neutrophils % (auto) 42.2 % (37.0-80.0); Nucleated Red Blood Cells % 0.1 %; Platelet Count (auto) 253 10^3/uL (140-450); Red Blood Cells 3.52 10^6/uL (4.5-5.90); Red Cell Distribution Width 15.4 % (11.8-14.3); White Blood Cell 6.8 10^3/uL (4.4-10.8)
[2024-06-01 15:51] LABS: Chloride 103 mmol/L (98-107); Potassium 3.5 mmol/L (3.5-5.1); Sodium 140 mmol/L (136-145)
[2024-06-01 15:52] LABS: Anion Gap 8 (5-15); Carbon Dioxide 29 mmol/L (20-31)
[2024-06-01 15:57] LABS: BUN/Creatinine Ratio 15.3 (10.0-20.0); Blood Urea Nitrogen 18 mg/dL (9-23); Glucose 86 mg/dL (74-106); Lipase 46 U/L (12-53)
[2024-06-01 15:58] LABS: Calcium 8.6 mg/dL (8.7-10.4)
[2024-06-01 16:03] VITALS: BP 125/68; PULSE 75; RESP 20; TEMP 98.7; O2SAT 92
[2024-06-01] MEDS: TETANUS-DIPTH-ACEL PERTUSSIS 0.5ML SYR Tdap IM ONE (16:06)
[2024-06-01] MEDS ORDERED: CLIN1CAP70 PO (16:18)
== END 2024-06-01 16:54 | disposition home or self-care (01) ==
LOC: ER 14:43
DX: L03.115 Cellulitis of right lower limb (principal); J44.9 Chronic obstructive pulmonary disease, unspecified; E11.9 Type 2 diabetes mellitus without complications; I50.9 Heart failure, unspecified; Z79.01 Long term (current) use of anticoagulants; Z79.899 Other long term (current) drug therapy
CPT/HCPCS: 36415; 80048; 83605; 83690; 83880; 85025; 90471; 90715

== ENCOUNTER 2024-08-01 13:13 | Emergency (ER) | payer MEDICARE, MEDICAID ==
[~2024-08-01 13:13] MED LIST changes: +CLIN1CAP70 PO
[2024-08-01] MEDS ORDERED: PIPERACILLIN-TAZOB 3.375GM 100 ML IV ONE (14:00)
[2024-08-01 14:01] LABS: Basophils # (auto) 0 10 ^3/uL (0-0.2); Basophils % (auto) 0.5 % (0.0-2.0); Hemoglobin 10.4 g/dL (13.5-17.5); Lymphocytes # (auto) 1.4 10 ^3/uL (0.4-5.4); Monocytes # (auto) 0.5 10 ^3/uL (0-1.3); Neutrophils # (auto) 2.9 10 ^3/uL (1.6-8.6); White Blood Cell 5.3 10^3/uL (4.4-10.8)
[2024-08-01 14:02] LABS: Eosinophils # (auto) 0.4 10 ^3/uL (0-0.8); Eosinophils % (auto) 8.2 % (0.0-7.0); Hematocrit 30.8 % (41.0-53.0); Lymphocytes % (auto) 26.8 % (10.0-50.0); Mean Corpuscular Hemoglobin 34.4 pg (28.0-32.0); Mean Corpuscular Hgb Conc. 33.7 g/dL (32.0-36.0); Mean Corpuscular Volume 102.2 fL (80.0-100.0); Monocytes % (auto) 10.2 % (0.0-12.0); Neutrophils % (auto) 54.3 % (37.0-80.0); Nucleated Red Blood Cells % 0.1 %; Platelet Count (auto) 185 10^3/uL (140-450); Red Blood Cells 3.01 10^6/uL (4.5-5.90); Red Cell Distribution Width 17.3 % (11.8-14.3)
[2024-08-01 14:09] LABS: Base Excess -1.9 mmol/L (-2.0-3.0)
--- NOTE | 2024-08-01 14:09 | ED.PDOC ---
SOB-HPI HPI Comments 83y M who presents to the ED for chief complaint of shortness of breath. -pt states he has been having shortness of breath for the past 1 days -pt states he has been having associated cough with yellow phlegm for the past 3 days - pt states he is also on supplemental 02 of 3 L via nc and presents with supplemental 02 from his COPD - pt otherwise denies any chest pain, diaphoresis, palpitations or any associated symptoms - pt states he was otherwise hospitalized 6 months prior for syncopal episode PMH: HTN, DM, ulcerm CHF, COPD PSH: R knee replacement Meds: ibuprofen, HCTZ, baclofen, losartan Allergies: vicodin social history: denies ETOH use, denies tobacco use, denies drug use HPI: Poor Historian. REVIEW OF SYSTEMS: CONSTITUTIONAL: Denies acute: fever, diaphoresis, chills, HEAD: Denies acute: headache, photophobia Eyes: Denies acute: Double vision, vision loss, eye pain, eye discharge. EARS: Denies acute: tinnitus, hearing loss, ear discharge, ear pain, THROAT: Denies acute: sore throat, swelling, difficulty swallowing , pain with swallowing, change in voice. NECK: Denies acute: neck pain, neck swelling, stiff neck. HEART: Denies acute : chest pain, palpitations, LUNGS: Denies acute: wheezing, hemoptysis ABDOMEN: Denies acute: abdominal pain, Nausea, Vomiting, diarrhea, melena , hematemesis, hematochezia SKIN: Denies acute: rash, redness, lesions, itchiness. EXTREMITIES: Denies acute: calf pain, numbness, tingling, weakness, denies pain in extremity. Denies acute: Low back pain. Neuro: Denies acute: focal neurological deficit, motor or sensory focal neurological deficit, tremors, seizure like activity, confusion, dizziness, change in mental status, loss of bowel or bladder function, cauda equina like symptoms. : Denies acute: dysuria, hematuria, flank pain, increase in urinary frequency. PSYCH: Denies acute: hallucination, suicidal ideation, homicidal ideation. PHYSICAL EXAM: General: ----[id number]----acute distress, awake and alert. Head: normocephalic, atraumatic. Neck: supple, trachea is midline, no swelling. Throat: Normal phonation. Eyes:, no erythema, no purulent discharge, no proptosis, no icterus. Heart: regular rate, regular rhythm, no significant murmur appreciated. Lungs: no apparent respiratory distress, Able to speak in full sentences. No wheezing, no rhonchi, no crackles. No stridors Clear to auscultation bilaterally. Abdomen: non tender to palpation, slightly distended, soft, no guarding, no rebound, + bowel sounds. Obese. Neuro: Awake, Alert, oriented to name, self, situation, follows commands GCS=15. Speech is normal. Skin: no petechia, no purpura, no cyanosis, non-pale, not jaundice. Lower extremities: --one/for bilateral - Pitting edema no deformity, no focal swelling, no calf TTP. Noted bilateral chronic venous stasis Makes eye contact. moves all four extremities. Face: no apparent facial droop. ED COURSE: Chief Complaint: Shortness of Breath Time Seen by MD: 14:00 Reviewed notes: Nurses Notes, Medications, Allergies Information Source: Patient Mode of Arrival: Wheelchair Past Medical History PAST MEDICAL HISTORY: CHF, COPD, DM Surgical History: Denies all surgeries Family History Family History: Reviewed,noncontributory to illness Social History Smoker: Non-Smoker Alcohol: Denies ETOH Use Drugs: Denies Drug Use Lives In: Home Was a procedure done? Was a procedure done?: No Differential Dx Differential Diagnosis: Other (DDx include ACS, unstable angina, anxiety, PE, pneumothroax, neoplasm, cardiac ischemia, COPD, asthma, CHF, pleural effusion, tobacco abuse, pneumonia, hypoxia, hypercapnia, anemia., infection/sepsis., pulmonary edema. Asthma, Cardiac tamponade, infection.) X-Ray, Labs, Meds, VS Vital Signs Date Time Temp Pulse Resp B/P (MAP) Pulse Ox O2 Delivery O2 Flow Rate FiO2 08/01/24 14:56 72 16 97 Nasal Cannula 3.0 08/01/24 14:56 98.1 72 16 114/70 (85) 97 98.1 08/01/24 13:35 75 Lab Test 08/01/24 17:02 08/01/24 14:46 08/01/24 14:36 08/01/24 14:05 Range/Units Troponin I High Sensitivity 11 9 </=54 ng/L Influenza Type A Antigen Negative Negative Influenza Type B Antigen Negative Negative SARS-CoV-2 Antigen (Rapid) Negative NEGATIVE Blood Gas Specimen Type Arterial Blood Gas Sample Site Right radial Blood Gas Patient Temperature 37.0 Arterial Blood Date Drawn [id number] Arterial Blood pH 7.431 7.350-7.450 Arterial Blood Partial Pressure CO2 33.5 L 35.0-48.0 mmHg Arterial Blood Partial Pressure O2 76.1 L 83.0-108.0 mmHg Arterial Blood HCO3 21.8 21.0-28.0 mmol/L Arterial Blood Oxygen Saturation 94.7 94.0-98.0 % Arterial Blood Base Excess -1.9 -2.0-3.0 mmol/L Arterial Blood Oxyhemoglobin 94.1 94.0-98.0 % Arterial Blood Carboxyhemoglobin 0.2 L 0.5-1.5 % Arterial Blood Methemoglobin 0.4 0.0-1.5 % Dimas Test Yes Blood Gas Total Hemoglobin 10.80 L 13.5-17.5 g/dL Blood Gas Liter Flow 2.00 Blood Gas Modality Nasal cannula FiO2 % 28.0 Test 08/01/24 13:41 08/01/24 13:32 Range/Units White Blood Count 5.3 4.4-10.8 10^3/uL Red Blood Count 3.01 L 4.5-5.90 10^6/uL Hemoglobin 10.4 L 13.5-17.5 g/dL Hematocrit 30.8 L 41.0-53.0 % Mean Corpuscular Volume 102.2 H 80.0-100.0 fL Mean Corpuscular Hemoglobin 34.4 H 28.0-32.0 pg Mean Corpuscular Hemoglobin Concent 33.7 32.0-36.0 g/dL Red Cell Distribution Width 17.3 H 11.8-14.3 % Platelet Count 185 140-450 10^3/uL Mean Platelet Volume 8.3 6.9-10.8 fL Neutrophils (%) (Auto) 54.3 37.0-80.0 % Lymphocytes (%) (Auto) 26.8 10.0-50.0 % Monocytes (%) (Auto) 10.2 0.0-12.0 % Eosinophils (%) (Auto) 8.2 H 0.0-7.0 % Basophils (%) (Auto) 0.5 0.0-2.0 % Neutrophils # (Auto) 2.9 1.6-8.6 10 ^3/uL Lymphocytes # (Auto) 1.4 0.4-5.4 10 ^3/uL Monocytes # (Auto) 0.5 0-1.3 10 ^3/uL Eosinophils # (Auto) 0.4 0-0.8 10 ^3/uL Basophils # (Auto) 0 0-0.2 10 ^3/uL Nucleated Red Blood Cells 0.1 % Sodium Level 147 H 136-145 mmol/L Potassium Level 3.4 L 3.5-5.1 mmol/L Chloride Level 111 H 98-107 mmol/L Carbon Dioxide Level 25 20-31 mmol/L Anion Gap 11 5-15 Blood Urea Nitrogen 19 9-23 mg/dL Creatinine 1.14 0.700-1.30 mg/dL Glomerular Filtration Rate Calc 65 >90 mL/min BUN/Creatinine Ratio 16.7 10.0-20.0 Serum Glucose 105 74-106 mg/dL Lactic Acid Level 1.4 0.4-2.0 mmol/L Calcium Level 8.6 L 8.7-10.4 mg/dL Total Bilirubin 0.4 0.2-1.0 mg/dL Aspartate Amino Transferase (AST) 18 13-40 U/L Alanine Aminotransferase (ALT) 11 7-40 U/L Alkaline Phosphatase 142 H 46-116 U/L Troponin I High Sensitivity 9 </=54 ng/L B-Type Natriuretic Peptide 163.81 0-100 pg/mL Total Protein 6.7 5.7-8.2 g/dL Albumin 3.8 3.2-4.8 g/dL Urine Color Yellow Yellow Urine Clarity Clear Clear Urine pH 6.0 5.0-9.0 Urine Specific [place] 1.024 1.001-1.035 Urine Protein 1+ H Negative Urine Ketones Negative Negative Urine Blood Negative Negative /uL Urine Nitrite Negative Negative Urine Bilirubin Negative Negative Urine Urobilinogen Normal Negative mg/dL Urine Leukocyte Esterase Negative Negative /uL Urine RBC <1 0 - 3 /hpf Urine Microscopic WBC 1 0-3 /HPF Urine Squamous Epithelial Cells Few <5 /hpf Urine Bacteria None seen None Seen /hpf Urine Hyaline Casts Few 0 - 2 /lpf Urine Mucus Few None Seen Urine Glucose Normal Normal mg/dL [facility] [id number] [place] [id number] Ph: [phone] DIAGNOSTIC IMAGING Diagnostic Imaging Report : [id number] Signed PATIENT: YOVANY CURIEL ALANACCT: [id number] UNIT: [id number] : 1940 LOC: ER ROOM / BED: / AGE / SEX: 83 / M ADM STATUS: REG ER SERVICE 36 ORDERING PHYSICIAN: MOSES SARAVIA DO PROCEDURE(s): CXR2 - CHEST TWO VIEWS ROUTINE REASON: SOB PRODUCTIVE COUGH ORDER NUMBER(s): [id number], ACCESSION NUMBER(s): [id number] CHEST RADIOGRAPH Indication: SOB PRODUCTIVE COUGH Technique: Frontal and lateral view of the chest was obtained Comparison: None FINDINGS: Lines and Tubes: None Lungs: Mild pulmonary vascular congestion Pleura: No effusion. No pneumothorax. Cardiomediastinal contours: Cardiomegaly. Prominent air-filled distention of the stomach and bowel in the upper abdomen. Lucency under the right hemidiaphragm. This likely represents prominent gas in the hepatic flexure. Bones: Unremarkable IMPRESSION: Mild pulmonary vascular congestion Lucency under the right hemidiaphragm. This likely represents prominent gas in the hepatic flexure. If there is concern for free intraperitoneal air, CT or repeat radiograph could be obtained to further evaluate if clinically indicated. ATED BY: REYNOLD MILLER MD DICTATED DATE/TIME: 08/01/241435 SIGNED BY: REYNOLD MILLER MD SIGNED DATE/TIME: 08/01/241435 CC: Time of 1ST Reevaluation: 20:08 Reevaluation 1ST: Unchanged Patient Education/Counseling: Diagnosis, Treatment Family Education/Counseling: No Family Present Comments Patient was placed for admission but he decided to leave against medical advice. Patient presented with the above HPI.---dyspnea---workup was initiated. patient was found with the above mentioned diagnosis. the following medications were ordered: please refer to order lists of meds and tests obtained by myself Dr. Saravia. Patient ED course and VS have been stabilized. Patient has been reassessed in the ED and remained in a stable condition. Escalation of care considered: Consideration of escalation to observation or admission Patient was ADMITTED to the medicine team for further evaluation and treatment of their presentation. However patient decided to leave against medical advice All the reports of any imaging studies that were ordered by myself were reviewed by myself. Departure 1 Departure Time of Disposition: 17:14 Impression: Primary Impression: Dyspnea Additional Impressions: Pulmonary vascular congestion Anemia Hypoxemia Disposition: ADMITTED INPATIENT Admit to: Tele Condition: Guarded Discharged With: Self Critical Care Note Critical Care Time?: No Heart Score Heart Score: Heart Score Response (Comments) Value History Slightly Suspicious 0 EKG Normal 0 Age >65 2 Risk Factors 1 or 2 risk factors 1 Troponin Normal limit 0 Total 3 I personally scribed for MOSES SARAVIA DO ([email or web address]) on 08/01/24 at 14:09. Electronically submitted by Phuc Perez ([email or web address]). I personally scribed for MOSES SARAVIA DO ([email or web address]) on 08/01/24 at 16:54. Electronically submitted by Phuc Perez ([email or web address]). MOSES SARAVIA DO August 01, 2024 14:09
[2024-08-01 14:16] LABS: Alanine Aminotransferase 11 U/L (7-40); Anion Gap 11 (5-15); Aspartate Aminotransferase 18 U/L (13-40); BUN/Creatinine Ratio 16.7 (10.0-20.0); Blood Urea Nitrogen 19 mg/dL (9-23); Carbon Dioxide 25 mmol/L (20-31); Glucose 105 mg/dL (74-106); Total Protein 6.7 g/dL (5.7-8.2)
[2024-08-01 14:17] LABS: Albumin 3.8 g/dL (3.2-4.8); Bilirubin, Total 0.4 mg/dL (0.2-1.0)
[2024-08-01 14:18] LABS: Alkaline Phosphatase 142 U/L (46-116); Calcium 8.6 mg/dL (8.7-10.4); Chloride 111 mmol/L (98-107); Potassium 3.4 mmol/L (3.5-5.1); Sodium 147 mmol/L (136-145)
[2024-08-01 14:31] LABS: Urine Bacteria None Seen /hpf (None Seen)
[2024-08-01 14:38] LABS: Urine Blood Negative /uL (Negative); Urine Clarity Clear (Clear); Urine Color Yellow (Yellow); Urine Hyaline Cast FEW /lpf (0 - 2); Urine Mucus FEW (None Seen); Urine Protein, UAD 1+ (Negative); Urine Specific Gravity 1.024 (1.001-1.035); Urine Squamous Epithelial Cell FEW /hpf (<5); Urine Urobilinogen Normal (Negative); Urine WBC 1 /HPF (0-3)
--- NOTE | 2024-08-01 14:38 | DVH ---
CHEST RADIOGRAPH Indication: SOB PRODUCTIVE COUGH Technique: Frontal and lateral view of the chest was obtained Comparison: None FINDINGS: Lines and Tubes: None Lungs: Mild pulmonary vascular congestion Pleura: No effusion. No pneumothorax. Cardiomediastinal contours: Cardiomegaly. Prominent air-filled distention of the stomach and bowel in the upper abdomen. Lucency under the righ t hemidiaphragm. This likely represents prominent gas in the hepatic flexure. Bones: Unremarkable IMPRESSION: Mild pulmonary vascular congestion Lucency under the right hemidiaphragm. This likely represents prominent gas in the hepatic flexure. If there is concern for free intraperitoneal air, CT or repeat radiograph could be obtained to furthe r evaluate if clinically indicated.
[2024-08-01 14:56] VITALS: BP 114/70; PULSE 72; RESP 16; TEMP 98.1; O2SAT 97
[2024-08-01 15:38] LABS: COVID19 ANTIGEN SOFIA FIA NEGATIVE (NEGATIVE); Rapid Influenza A Negative (Negative); Rapid Influenza B Negative (Negative)
[2024-08-01] MEDS ORDERED: FUROSEMIDE 100 MG/10ML VIAL IV ONE (16:45)
--- NOTE | 2024-08-01 18:57 | ECG ---
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
--- NOTE | 2024-08-01 18:57 | ECG ---
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
== END 2024-08-01 19:45 | disposition left against medical advice (07) ==
LOC: ER 13:13
DX: R06.00 Dyspnea, unspecified (principal); R09.89 Other specified symptoms and signs involving the circulatory and respiratory systems; D64.9 Anemia, unspecified; R09.02 Hypoxemia; J44.9 Chronic obstructive pulmonary disease, unspecified; E11.9 Type 2 diabetes mellitus without complications; I11.0 Hypertensive heart disease with heart failure; I50.9 Heart failure, unspecified; Z96.651 Presence of right artificial knee joint; Z88.5 Allergy status to narcotic agent; Z20.822 Contact with and (suspected) exposure to COVID-19
CPT/HCPCS: 36415; 36600; 71046; 80053; 81001; 82805; 83605; 83880; 84484; 85025; 87040; 87426; 87804; 93005

== ENCOUNTER 2024-12-02 12:28 | Inpatient (IN) | payer MEDICAID, MEDICARE ==
[~2024-12-02] VITALS: Ht 177.8 cm; Wt 109.0 kg
[2024-12-02 13:18] LABS: Hematocrit 27.4 % (41.0-53.0); Hemoglobin 9.3 g/dL (13.5-17.5); Mean Corpuscular Hemoglobin 33.6 pg (28.0-32.0); Mean Corpuscular Volume 98.6 fL (80.0-100.0); Nucleated Red Blood Cells % 0.0 %
[2024-12-02 13:31] VITALS: PULSE 68; RESP 20; O2SAT 95
[2024-12-02] MEDS: SODIUM CHLORIDE 0.9% 1,000 ML IV ONE (13:35)
[2024-12-02 13:38] LABS: Alkaline Phosphatase 110 U/L (46-116); Anion Gap 12 (5-15); BUN/Creatinine Ratio 10.4 (10.0-20.0); Blood Urea Nitrogen 14 mg/dL (9-23); Carbon Dioxide 30 mmol/L (20-31); Chloride 101 mmol/L (98-107); Sodium 143 mmol/L (136-145); Total Protein 6.1 g/dL (5.7-8.2)
[2024-12-02 13:39] LABS: Alanine Aminotransferase < 9 U/L (7-40); Albumin 3.1 g/dL (3.2-4.8); Bilirubin, Total 0.6 mg/dL (0.2-1.0); Calcium 6.3 mg/dL (8.7-10.4); Glucose 132 mg/dL (74-106); Potassium 2.6 mmol/L (3.5-5.1)
--- NOTE | 2024-12-02 13:55 | ED.PDOC ---
History of Present Illness HPI Comments 84-year-old male presents to the ER with prior surgical history of umbilical hernia three weeks ago and a chief complaint of a cough for one day. Patient reports the he has had a cough for one day for which subsided but has been having shortness a breath. Patient states that he is unable to take a full janessa ath without coughing. Patient's blood pressure in the bed is 87/39. Denies chills, fever, N/V/D, CP. No other associated symptoms, modifiers, recent injuries or sick contacts present at this time. Chief Complaint: Cough Time Seen by MD: 13:55 Reviewed Notes: Nurses Notes, Medications, Allergies Allergies: Coded Allergies: No Known Drug Allergy (Verified Allergy, Unknown, 01/15/24) Home Meds Active Scripts Clindamycin Hcl (Clindamycin Hcl) 300 Mg Cap, 300 MG PO QID for 10 Days, #40 CAP Prov:GLEN ARMSTRONG PAC 06/01/24 Reported Medications Metolazone (Metolazone) 5 Mg Tab, 1 TAB PO DAILY for 90 Days, #90 01/12/24 Furosemide (Furosemide 80 mg) 1 Tab Tab, 1 TAB PO BID for 90 Days, #180 01/12/24 Amlodipine Besylate (Amlodipine Besylate) 2.5 Mg Tab, 1 TAB PO DAILY for 90 Days, #90 01/12/24 Cholecalciferol (Gnp Vitamin D) 1,000 Unit Tab, 1 TAB PO DAILY for 90 Days, #90 01/12/24 Allopurinol (Allopurinol) 100 Mg Tab, 1 TAB PO DAILY for 90 Days, #90 01/12/24 Atorvastatin Calcium (Lipitor) 20 Mg Tab, 1 TAB PO DAILY for 90 Days, #90 01/12/24 Spironolactone (Spironolactone) 25 Mg Tab, 1 TAB PO DAILY PRN for bid for 90 Days, #180 01/12/24 Naloxegol Oxalate (Movantik) 25 Mg Tab, 1 TAB PO DAILY for 30 Days, #30 01/12/24 Xydzfbcngwu-Jmtsyzfifjpm-Qiqps (Trelegy Ellipta 100-62.5-25 Mcg/INH) 1 Aer Aer, 1 PUFF IN DAILY for 30 Days, #60 01/12/24 Warfarin Sodium (Warfarin Sodium) 1 Mg Tab, 1 TAB PO DAILY for 90 Days, #90 01/12/24 Potassium Chloride (Potassium Chloride ER) 10 Meq Tab, 2 TAB PO BID for 90 Days, #360 01/12/24 Baclofen (Baclofen) 10 Mg Tab, 1 TAB PO Q8HR for 30 Days, #90 01/12/24 Oxycodone HCl (Oxycontin) 15 Mg Tab, 1 TAB PO BID for 15 Days, #30 01/12/24 Information Source: Patient Mode of Arrival: Ambulatory Severity: Moderate Timing: Hours Duration: Since onset, Hours Prehospital treatment: None Past Medical History PAST MEDICAL HISTORY: DM, Denies Surgical History (Other): Umbilical hernia surgery x3 weeks Family History Family History: Reviewed,noncontributory to illness, Unknown Social History Smoker: Non-Smoker Alcohol: Denies ETOH Use Drugs: Denies Drug Use Lives In: Home Constitutional: denies: chills, diaphoresis, fatigue, fever, malaise, sweats, weakness, others EENTM: denies: blurred vision, double vision, ear bleeding, ear discharge, ear drainage, ear pain, ear ringing, eye pain, eye redness, hearing loss, mouth pain, mouth swelling, nasal discharge, nose bleeding, nose congestion, nose pain, photophobia, tearing, throat pain, throat swelling, voice changes, others Respiratory: reports: cough, shortness of breath; denies: hemoptysis, orthopnea, SOB at rest, SOB with excertion, stridor, wheezing, others Cardiovascular: denies: chest pain, dizzy spells, diaphoresis, Dyspnea on exertion, edema, irregular heart beat, left arm pain, lightheadedness, palpitations, PND, syncope, others Gastrointestinal: denies: abdomen distended, abdominal pain, blood streaked bowels, constipated, diarrhea, dysphagia, difficulty swallowing, hematemesis, melena, nausea, poor appetite, poor fluid intake, rectal bleeding, rectal pain, vomiting, others Genitourinary: denies: burning, dysuria, flank pain, frequency, hematuria, incontinence, penile discharge, penile sore, pain, testicle pain, testicle swelling, urgency, others Neurological: denies: dizziness, fainting, headache, left sided numbness, left sided weakness, numbness, paresthesia, pre-existing deficit, right sided numbness, right sided weakness, seizure, speech problems, tingling, tremors, weakness, others Musculoskeletal: denies: back pain, gout, joint pain, joint swelling, muscle pain, muscle stiffness, neck pain, others Integumetry: denies: bruises, change in color, change in hair/nails, dryness, laceration, lesions, lumps, rash, wounds, others Allergic/Immunocompromised: denies: Difficulty Healing, Frequent Infections, Hives, Itching, others Hematologic/Lymphatic: denies: anemia, blood clots, easy bleeding, easy bruising, swollen glands, others Endocrine: denies: excessive hunger, excessive sweating, excessive thirst, excessive urination, flushing, intolerance to cold, intolerance to heat, unexplained weight gain, unexplained weight loss, others Psychiatric: denies: anxiety, bipolar disorder, depression, hopeless, panic disorder, schizophrenia, sleepless, suicidal, others All Other Systems: Reviewed and Negative Physical Exam General Appearance: Moderate Distress, Normal HEENT: Normal ENT Inspection, Pharynx Normal, TMs Normal Neck: Full Range of Motion, Non-Tender, Normal, Normal Inspection Respiratory: Chest Non-Tender, No Accessory Muscle Use, Other (Coarse breath sounds) Cardiovascular: No Edema, No JVD, No Murmur, No Gallop, Normal Peripheral Pulses, Regular Rate/Rhythm Breast Exam: Deferred Gastrointestinal: No Organomegaly, Non Tender, No Pulsatile Mass, Normal Bowel Sounds, Soft Genitalia: Deferred Pelvic: Deferred Rectal: Deferred Extremities: No calf tenderness, Normal capillary refill, Normal inspection, Normal range of motion, Non-tender, No pedal edema Musculoskeletal : Apperance: Normal 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 Was a procedure done?: No EKG EKG : Pulse Rate (adult): 68 [place]: Normal Cardiac Rhythm: Afib Block: None Hypertrophy: None ST: Normal Differential Dx Considerations may include: Hypotension Electrolyte imbalance X-Ray, Labs, Meds, VS Vital Signs Date Time Temp Pulse Resp B/P (MAP) Pulse Ox O2 Delivery O2 Flow Rate FiO2 9/7/25 13:55 68 12/02/24 13:31 68 20 95 Nasal Cannula* 2 28 12/02/24 12:40 68 12/02/24 12:35 89/41 (57) 12/02/24 12:34 98.7 68 18 80/36 (51) 94 98.7 12/02/24 12:29 98.4 68 18 80/36 94 98.4 Lab Test 12/02/24 13:50 12/02/24 12:58 Range/Units Troponin I High Sensitivity 30 32 </=54 ng/L White Blood Count 8.2 4.4-10.8 10^3/uL Red Blood Count 2.78 L 4.5-5.90 10^6/uL Hemoglobin 9.3 L 13.5-17.5 g/dL Hematocrit 27.4 L 41.0-53.0 % Mean Corpuscular Volume 98.6 80.0-100.0 fL Mean Corpuscular Hemoglobin 33.6 H 28.0-32.0 pg Mean Corpuscular Hemoglobin Concent 34.1 32.0-36.0 g/dL Red Cell Distribution Width 16.8 H 11.8-14.3 % Platelet Count 243 140-450 10^3/uL Mean Platelet Volume 7.5 6.9-10.8 fL Neutrophils (%) (Auto) 74.3 37.0-80.0 % Lymphocytes (%) (Auto) 12.5 10.0-50.0 % Monocytes (%) (Auto) 6.9 0.0-12.0 % Eosinophils (%) (Auto) 5.4 0.0-7.0 % Basophils (%) (Auto) 0.9 0.0-2.0 % Neutrophils # (Auto) 6.1 1.6-8.6 10 ^3/uL Lymphocytes # (Auto) 1.0 0.4-5.4 10 ^3/uL Monocytes # (Auto) 0.6 0-1.3 10 ^3/uL Eosinophils # (Auto) 0.4 0-0.8 10 ^3/uL Basophils # (Auto) 0.1 0-0.2 10 ^3/uL Nucleated Red Blood Cells 0.0 % Sodium Level 143 136-145 mmol/L Potassium Level 2.6 L 3.5-5.1 mmol/L Chloride Level 101 98-107 mmol/L Carbon Dioxide Level 30 20-31 mmol/L Anion Gap 12 5-15 Blood Urea Nitrogen 14 9-23 mg/dL Creatinine 1.35 H 0.700-1.30 mg/dL Glomerular Filtration Rate Calc 52 >90 mL/min BUN/Creatinine Ratio 10.4 10.0-20.0 Serum Glucose 132 H 74-106 mg/dL Calcium Level 6.3 L 8.7-10.4 mg/dL Total Bilirubin 0.6 0.2-1.0 mg/dL Aspartate Amino Transferase (AST) 22 13-40 U/L Alanine Aminotransferase (ALT) < 9 7-40 U/L Alkaline Phosphatase 110 46-116 U/L Total Protein 6.1 5.7-8.2 g/dL Albumin 3.1 L 3.2-4.8 g/dL Current Medications Medications (Trade) Dose Ordered Sig/Oralia Route Start Time Stop Time Status Last Admin Sodium Chloride 1,000 ml @ 1,000 mls/hr Q1H ONCE IV 12/02/24 13:00 12/02/24 13:59 DC 12/02/24 13:35 Patient alert. Answering simple questions. Hypotension. Establish intravenous access. Was given fluids. Unable to take deep breaths without coughing. Possible pneumonitis pain Was given steroid. Was given breathing treatment. Was given azithromycin. EKG reviewed does not show any acute changes. Potassium is low. Was given potassium. Explained to the patient. Continue monitoring. Time of 1ST Reevaluation: 14:25 Reevaluation 1ST: Unchanged Patient Education/Counseling: Diagnosis, Treatment, Prognosis Family Education/Counseling: No Family Present SEPSIS Sepsis Screen Date sepsis recognized/suspect: Dec 02, 2024 Time Sepsis recognized/suspect: 1230 Recent Procedure: No On Antibiotic Therapy: No Respiratory Rate >20: No Heart Rate >90: No Temp<36 C (96.8 F) or >38.3 C: No SBP <90 or MAP <65 mmHG: No New Acute Mental Status Change: No Is the patient on CPAP, BIPAP,: No Physician Orders Electrocardigram (12/02/24 12:37) Chest Portable (12/02/24 12:48) Urinalysis (12/02/24 12:48) Troponin-I Hs (12/02/24 15:48) Vital Signs Date Time Temp Pulse Resp B/P (MAP) Pulse Ox O2 Delivery O2 Flow Rate FiO2 12/02/24 13:55 68 12/02/24 13:31 68 20 95 Nasal Cannula* 2 28 12/02/24 12:40 68 12/02/24 12:35 89/41 (57) 12/02/24 12:34 98.7 68 18 80/36 (51) 94 98.7 12/02/24 12:29 98.4 68 18 80/36 94 98.4 Laboratory Tests Test 12/02/24 12:58 White Blood Count 8.2 10^3/uL (4.4-10.8) Medications Medications Dose Ordered Sig/Oralia Route Start Time Stop Time Status Last Admin Dose Admin Sodium Chloride 1,000 ml @ 1,000 mls/hr Q1H ONCE IV 12/02/24 13:00 12/02/24 13:59 DC 12/02/24 13:35 Departure 1 Departure Time of Disposition: 14:47 Impression: Primary Impression: Hypotension Qualified Codes: I95.9 - Hypotension, unspecified Additional Impressions: Pneumonitis Hypokalemia Disposition: ADMITTED INPATIENT Admit to: Med Surg Condition: Guarded Critical Care Note Critical Care Time?: Yes (90 min-critical care time only) Stability Stability form required: No Heart Score Heart Score: Heart Score Response (Comments) Value History Slightly Suspicious 0 EKG Normal 0 Age >65 2 Risk Factors >3 or Hx ASHD 2 Troponin Normal limit 0 Total 4 I personally scribed for MARK MAY MD ([email or web address]) on 12/02/24 at 13:55. Electronically submitted by Hieu Olson ([email or web address]). MARK MAY MD Dec 02, 2024 13:55
--- NOTE | 2024-12-02 13:56 | DVH ---
CHEST RADIOGRAPH Indication: sob Technique: Single frontal view of the chest was obtained Comparison: XY CHEST XRAY 1 VIEW on DOS: 01/16/24, XY CHEST PORTABLE on DOS: 01/10/24, XR CHEST 1 VIE W on DOS: 10/03/23, XR CHEST 1 VIEW on DOS: 12/30/22 FINDINGS: Lines and Tubes: None Lungs: Bibasilar subsegmental atelectasis. Right lower lobe opacity not entirely excluded. Pleura: No effusion. No pneumothorax. Cardiomediastinal contours: Unremarkable Bones: No acute osseous abnormality. IMPRESSION: 1. Bibasilar subsegmental atelectasis. 2. Right lower lobe opacity not entirely excluded.
[2024-12-02] MEDS: methylPREDNISolone SOD SUCC 125 MG/2 ML VL IV ONE (15:13)
[2024-12-02 15:27] LABS: Urine Protein, UAD TRACE (Negative)
[2024-12-02 15:59] LABS: COVID19 ANTIGEN SOFIA FIA NEGATIVE (NEGATIVE)
[2024-12-02] MEDS: AZITHROMYCIN 500MG/ 250ML 250 ML IV ONE (16:09)
[2024-12-02] MEDS: POTASSIUM CHL 20 Meq TABLET PO ONE (17:20)
[2024-12-02] MEDS: POTASSIUM CHL 20MEQ/100ML 100 ML IV ONE (22:35)
--- NOTE | 2024-12-02 23:29 | DVHHPRES ---
History of Present Illness Resident Creating Document: ANNE DALE History of Present Illness History of Present Illness (HPI): Hieu Neves is an 84-year-old male with a significant past medical history including deep vein thrombosis (DVT), diastolic heart failure, chronic obstructive pulmonary disease (COPD), gout, hypertension, diabetes mellitus, and a history of cellulitis. He presented to the hospital with complaints of a productive cough that has persisted for the past three days. The cough is accompanied by yellow-colored phlegm and shortness of breath. The patient denies experiencing fever or chest pain. He reports an unintentional weight loss of approximately 50 pounds over the past six months. He denies any leg pain or recent exposure to sick contacts. Past Medical History (PMH): deep vein thrombosis (DVT), diastolic heart failure, chronic obstructive pulmonary disease (COPD), gout, hypertension, diabetes mellitus, and a history of cellulitis Past Surgical History (PSH): Patient denies any past surgeries Family history (FH): Father had history of DVT EtOH: Stopped 25 years ago Smoking /Vaping: Stopped smoking 25 years ago Recreational Drugs: Stopped recreational drug use 30 years ago Residence: [facility] Home Medications: Metoprolol, warfarin, allopurinol, atorvastatin, furosemide, potassium, omeprazole, baclofen, trelegy Allergies: No known allergies PCP: Dr. Luo Specialist relevant to admission: Nonrelevant Review of Systems Review of Systems CONSTITUTIONAL: Fever, night sweats, weight loss, Lymphadenopathy, ecchymoses, fatigue: Negative DERMATOLOGIC: Rash, New/growing/changing skin lesions: Negative HEENT: Vision change, eye pain, Rhinorrhea, sinus pain, epistaxis, dysphagia, odynophagia, globus sensation, Change in hearing, tinnitus, vertigo, otalgia, Dental problems, oral ulcers or lesions: : Negative ENDOCRINE: Weight change, heat or cold intolerance, tremor, insomnia, neck pain or swelling, Polyuria, polydipsia, polyphagia, Abnormal hair growth, change in nails: Negative CARDIOVASCULAR: Chest pain, palpitations, syncope, Edema, cyanosis, claudication, Orthopnea, paroxysmal nocturnal dyspnea: Negative PULMONARY: hemoptysis, wheezing, chest pain : Negative. Complains of cough and shortness of Breath GI: Nausea, vomiting, diarrhea, melena, hematochezia, Change in appetite, abdominal pain, change in bowel habits or stools: Negative : Dysuria, frequency, urgency, Urinary incontinence, hematuria, foamy urine, nocturia, Change in libido, erectile dysfunction, Change in menses, dysmenorrhea, dyspaerunia, pelvic pain: : Negative MUSCULOSKELETAL: Joint swelling or pain, muscle pain, back pain: : Negative NEUROLOGIC: Headache, scotoma, Change in smell or taste, change in facial muscles, Muscle weakness, paresthesias, anesthesia, Ataxia, change in speech: Negative PSYCHIATRIC: Depression, anxiety, hallucinations, erwin, suicidal/homicidal thoughts, Binging, purging: Negative Allergies: Coded Allergies: No Known Drug Allergy (Verified Allergy, Unknown, 01/15/24) Exam Vital Signs Vital Signs Date Time Temp Pulse Resp B/P (MAP) Pulse Ox O2 Delivery O2 Flow Rate FiO2 12/02/24 18:00 67 20 115/55 (75) 94 12/02/24 13:31 Nasal Cannula* 2 28 12/02/24 12:34 98.7 98.7 Exam General Appearance: Alert, Oriented X3, Cooperative, Mild distress HEENT: Atraumatic, PERRLA, EOMI, Mucous membrane moist/pink Respiratory: Wheezing present Cardiovascular: Regular rate, Normal S1, Normal S2, No murmurs, no chest wall tenderness Abdominal: Normal bowel sounds, Soft, No tenderness, No hepatospenomegaly, No masses Extremities: No clubbing, No cyanosis, No edema, Normal pulses, No tenderness/swelling Skin: No rashes, No breakdown, No significant lesion Neuro: Normal gait, Normal speech, Strength at 5/5 X4 ext, Normal tone, Sensation intact, Cranial nerves 3-12 NL, Reflexes 2+ Psych/Mental Status: Mental status NL, Mood NL Labs/Xrays Labs Test 12/02/24 15:56 12/02/24 15:23 12/02/24 14:03 12/02/24 12:58 Range/Units Troponin I High Sensitivity 32 </=54 ng/L Influenza Type A Antigen Negative Negative Influenza Type B Antigen Negative Negative SARS-CoV-2 Antigen (Rapid) Negative NEGATIVE Urine Color Yellow Yellow Urine Clarity Clear Clear Urine pH 6.5 5.0-9.0 Urine Specific [place] 1.017 1.001-1.035 Urine Protein Trace H Negative Urine Ketones Negative Negative Urine Blood Negative Negative /uL Urine Nitrite Negative Negative Urine Bilirubin Negative Negative Urine Urobilinogen Normal Negative mg/dL Urine Leukocyte Esterase Negative Negative /uL Urine RBC 1 0 - 3 /hpf Urine Microscopic WBC 2 0-3 /HPF Urine Squamous Epithelial Cells Few <5 /hpf Urine Bacteria None seen None Seen /hpf Urine Glucose Normal Normal mg/dL White Blood Count 8.2 4.4-10.8 10^3/uL Red Blood Count 2.78 L 4.5-5.90 10^6/uL Hemoglobin 9.3 L 13.5-17.5 g/dL Hematocrit 27.4 L 41.0-53.0 % Mean Corpuscular Volume 98.6 80.0-100.0 fL Mean Corpuscular Hemoglobin 33.6 H 28.0-32.0 pg Mean Corpuscular Hemoglobin Concent 34.1 32.0-36.0 g/dL Red Cell Distribution Width 16.8 H 11.8-14.3 % Platelet Count 243 140-450 10^3/uL Mean Platelet Volume 7.5 6.9-10.8 fL Neutrophils (%) (Auto) 74.3 37.0-80.0 % Lymphocytes (%) (Auto) 12.5 10.0-50.0 % Monocytes (%) (Auto) 6.9 0.0-12.0 % Eosinophils (%) (Auto) 5.4 0.0-7.0 % Basophils (%) (Auto) 0.9 0.0-2.0 % Neutrophils # (Auto) 6.1 1.6-8.6 10 ^3/uL Lymphocytes # (Auto) 1.0 0.4-5.4 10 ^3/uL Monocytes # (Auto) 0.6 0-1.3 10 ^3/uL Eosinophils # (Auto) 0.4 0-0.8 10 ^3/uL Basophils # (Auto) 0.1 0-0.2 10 ^3/uL Nucleated Red Blood Cells 0.0 % Sodium Level 143 136-145 mmol/L Potassium Level 2.6 L 3.5-5.1 mmol/L Chloride Level 101 98-107 mmol/L Carbon Dioxide Level 30 20-31 mmol/L Anion Gap 12 5-15 Blood Urea Nitrogen 14 9-23 mg/dL Creatinine 1.35 H 0.700-1.30 mg/dL Glomerular Filtration Rate Calc 52 >90 mL/min BUN/Creatinine Ratio 10.4 10.0-20.0 Serum Glucose 132 H 74-106 mg/dL Calcium Level 6.3 L 8.7-10.4 mg/dL Total Bilirubin 0.6 0.2-1.0 mg/dL Aspartate Amino Transferase (AST) 22 13-40 U/L Alanine Aminotransferase (ALT) < 9 7-40 U/L Alkaline Phosphatase 110 46-116 U/L Total Protein 6.1 5.7-8.2 g/dL Albumin 3.1 L 3.2-4.8 g/dL SEPSIS Sepsis Screen Date sepsis recognized/suspect: Dec 02, 2024 Time Sepsis recognized/suspect: 1229 Recent Procedure: No On Antibiotic Therapy: No Respiratory Rate >20: No Heart Rate >90: No Temp<36 C (96.8 F) or >38.3 C: No SBP <90 or MAP <65 mmHG: No New Acute Mental Status Change: No Is the patient on CPAP, BIPAP,: No Physician Orders Potassium Chl 20meq/100ml (12/02/24 21:30) Vital Signs Date Time Temp Pulse Resp B/P (MAP) Pulse Ox O2 Delivery O2 Flow Rate FiO2 12/02/24 18:00 67 20 115/55 (75) 94 12/02/24 16:25 40 12/02/24 16:00 74 18 107/56 (73) 92 Laboratory Tests Test 12/02/24 12:58 White Blood Count 8.2 10^3/uL (4.4-10.8) Medications Medications Dose Ordered Sig/Oralia Route Start Time Stop Time Status Last Admin Dose Admin Azithromycin 250 ml @ 125 mls/hr ONCE ONCE IV 12/02/24 15:00 12/02/24 16:59 DC 12/02/24 16:09 125 MLS/HR Ceftriaxone Sodium 50 ml @ 100 mls/hr ONCE ONCE IV 12/02/24 15:00 12/02/24 15:29 DC 12/02/24 15:13 100 MLS/HR Methylprednisolone Sodium Succinate 125 mg ONCE ONCE IV 12/02/24 15:00 12/02/24 15:01 DC 12/02/24 15:13 125 MG Potassium Chloride 40 meq ONCE ONCE PO 12/02/24 17:15 12/02/24 17:17 DC 12/02/24 17:20 40 MEQ Potassium Chloride 100 ml @ 50 mls/hr ONCE ONCE IV 12/02/24 21:30 12/02/24 23:29 12/02/24 22:35 50 MLS/HR Sodium Chloride 1,000 ml @ 1,000 mls/hr Q1H ONCE IV 12/02/24 13:00 12/02/24 13:59 DC 12/02/24 13:35 1,000 MLS/HR Assessment/Plan Assessment/Plan Assessment and Plan # Gram-positive/Gram-negative community-acquired pneumonia - Continue IV azithromycin and ceftriaxone - MRSA screen - Follow Sputum culture with Gram stain - CXR # Possible COPD exacerbation - Continue Albuterol and ipratropium nebulization - Continue prednisone 40 mg for 5 days # Likely ISHAN due to VMN - Follow creatinine levels - IV fluids given in the ER, held temporarily due to history of congestive heart failure # Possible sepsis - Follow lactic acid levels -IV fluids given in the ER -Continue IV azithromycin and ceftriaxone # Hypotension -IV fluids, now normotensive # Asymptomatic hypocalcemia - Corrected Calcium 7.5 - Follow calcium levels # Hypokalemia - Potassium supplemented - Follow up potassium levels # Essential hypertension - Continue home medications # Chronic diastolic heart failure - Hold Lasix for now. pt presented with hypotension. Assess volume status before continuing diuresis - Continue metolazone # History of DVT - Continue warfarin # Gout, not in flare up - Continue allopurinol # Type 2 diabetes mellitus - Continue home medications DVT prophylaxis: brisk movement. Barriers to discharge: Medical diagnosis and managment in progress. Patient is homeless. PT and SW consult as needed. PCP: Dr. Luo Specialist Relevent To Admission: Nonrelevant Case discussed with Dr. Beatty. Code Status: Full Code. Complex patient care discussion needed. Spend total 37 minutes for bedside assessment, case discussion and management. Plan discussed with: Patient My Orders Orders - ANNE DALE RESIDENT Procedure Category Date Status Time Potassium Chl PHA 12/02/24 In Process 20meq/100ml 21:30 Date of Service: Dec 02, 2024 Billing Provider: LAUREL BEATTY MD Common Visit Codes: 37726-RMJCSQU INP/OBS CARE (HIGH) Secondary Visit Codes: 74262-PTNULCQP CARE PLAN 30 MINUTES ANNE DALE RESIDENT Dec 02, 2024 23:29 MIKHAIL NAPOLES RESIDENT Dec 03, 2024 08:44
[2024-12-02] MEDS ORDERED: ACETAMINOPHEN 325 MG TAB PO PRN (23:30)
[2024-12-02] MEDS ORDERED: DOCUSATE SOD 100 MG CAP PO PRN (23:30)
[2024-12-03] VITALS (20 sets, daily range): BP systolic 95–135; BP diastolic 53–72; PULSE 64–86; RESP 16–22; TEMP 94.5–98.1; O2SAT 91–100
[2024-12-03] MEDS ORDERED: WARFARIN SODIUM 5 MG TAB PO SCH (00:30)
[2024-12-03] MEDS: ALBUTEROL SULF 2.5 MG/0.5ML(0.5%) NEB SOLN NEB SCH (02:49)
[2024-12-03] MEDS: IPRATROPIUM BROM 0.5 MG/2.5ML INH SOL NEB SCH (02:50)
[2024-12-03] MEDS: predniSONE 20 MG TAB PO SCH (03:01)
[2024-12-03] MEDS: POTASSIUM EFFERVESENT TAB 25 MEQ PO ONE (03:01)
--- NOTE | 2024-12-03 06:12 | ECG ---
[facility] Test Date: 2024-12-02 Test Time: 12:40:16 Pat Name: YOVANY CURIEL Department: [facility] ED Room: 0221T Gender: M Policy Analyst: DERRICK : 1940 Requested By: MARK MAY Order Number: [id number] Reading MD: Ha Palacio Measurements Intervals [place] Rate: 68 P: 0 NM: 0 QRS: -3 QRSD: 168 T: 8 QT: 430 QTc: 458 Interpretive Statements Atrial fibrillation Ventricular premature complex Right bundle branch block Electronically Signed On 12-03-2024 14:27:36 PDT by Ha Palacio Please click the below link to view image of tracing.
[2024-12-03 06:32] LABS: Amphetamine Screen, Urine Neg (NEGATIVE); Barbiturate Scree,Urine Neg (NEGATIVE); Benzodiazephine Screen, Urine Neg (NEGATIVE); Cocaine Screen, Urine Neg (NEGATIVE); Opiate Scree,Urine Neg (NEGATIVE)
[2024-12-03 06:33] LABS: Cannabinoid Screen, Urine Neg (NEGATIVE); Phencyclidine Screen, Urine Neg (NEGATIVE)
[2024-12-03 07:43] LABS: Nucleated Red Blood Cells % 0.0 %
[2024-12-03 07:46] LABS: Hematocrit 26.4 % (41.0-53.0); Hemoglobin 9.1 g/dL (13.5-17.5); Mean Corpuscular Hemoglobin 34.3 pg (28.0-32.0); Mean Corpuscular Volume 99.0 fL (80.0-100.0)
[2024-12-03 07:57] LABS: Alkaline Phosphatase 101 U/L (46-116); Anion Gap 10 (5-15); BUN/Creatinine Ratio 10.7 (10.0-20.0); Blood Urea Nitrogen 14 mg/dL (9-23); Carbon Dioxide 30 mmol/L (20-31); Chloride 103 mmol/L (98-107); Potassium 3.5 mmol/L (3.5-5.1); Sodium 143 mmol/L (136-145); Total Protein 6.5 g/dL (5.7-8.2)
[2024-12-03 07:58] LABS: Bilirubin, Total 0.4 mg/dL (0.2-1.0)
[2024-12-03 08:04] LABS: INR 2.29 (0.9-1.15); Partial Thromboplastin Time 44.4 SEC (24.5-34.5); Prothrombin Time 22.4 sec (9.3-11.8)
[2024-12-03 08:07] LABS: Alanine Aminotransferase < 9 U/L (7-40); Calcium 6.7 mg/dL (8.7-10.4); Glucose 197 mg/dL (74-106)
[2024-12-03 08:08] LABS: Albumin 3.2 g/dL (3.2-4.8)
[2024-12-03 08:17] LABS: Lactic Acid w/Reflex 2.4 mmol/L (0.4-2.0)
[2024-12-03] MEDS: BACLOFEN 10 MG TAB PO SCH (08:51)
[2024-12-03] MEDS: ALLOPURINOL 100 MG TAB PO SCH (08:51)
[2024-12-03] MEDS: IPRATROPIUM BROM 0.5 MG/2.5ML INH SOL NEB ONE (09:07)
[2024-12-03] MEDS: ALBUTEROL SULF 2.5 MG/0.5ML(0.5%) NEB SOLN NEB ONE (09:08)
[2024-12-03] MEDS: OMEPRAZOLE-SOD BICARB 20 MG POWDER PO SCH (10:07)
[2024-12-03] MEDS: DOXYCYCLINE 100MG/100ML 100 ML IV SCH (10:08)
[2024-12-03] MEDS: LACTATED RINGER'S 1,000 ML IV ONE (10:21)
--- NOTE | 2024-12-03 11:03 | DVH ---
Bilateral lower extremity venous duplex Clinical History: b/l leg swelling Comparison: CT LOWER EXTREMITY NON JOINT RIGH on DOS: 01/11/24, US BILAT LOWER DVT on DOS: 01/10/24 Technique: Duplex Doppler evaluation of the deep venous systems of both lower extremities from the common femora l veins to the popliteal veins including color Doppler and spectral/pulsed waveform analysis was perf ormed. Findings: RIGHT SIDE: The common femoral vein demonstrates appropriate compressibility and waveform variability. There is compressibility/patency of the great saphenous vein at the proximal thigh. Chronic thrombus in the right mid and distal femoral vein. The deep femoral vein demonstrates appropriate compressibility and waveform variability. The popliteal vein demonstrates probable chronic thrombus in the popliteal vein. There is normal compressibility at the tibioperoneal trunk. LEFT SIDE: The common femoral vein demonstrates appropriate compressibility and waveform variability. There is compressibility/patency of the great saphenous vein at the proximal thigh. The femoral vein demonstrates probable chronic thrombus in the mid femoral vein. The deep femoral vein demonstrates appropriate compressibility and waveform variability. The popliteal vein demonstrates probable chronic thrombus in the popliteal vein. There is normal compressibility at the tibioperoneal trunk. Impression: No right or left acute femoropopliteal venous thrombosis. Probable chronic thrombus involving the right mid and distal femoral vein and popliteal vein. Probable chronic thrombus in the mid left femoral vein and popliteal vein.
[2024-12-03 11:30] LABS: Free T3 1.79 pg/mL (2.3-4.2); Free T4 (Free Thyroxine) 0.99 ng/dL (0.89-1.76)
[2024-12-03] MEDS: SODIUM CHLORIDE 0.9% 1,000 ML IV SCH (11:34)
[2024-12-03 12:02] LABS: Iron 42.0 ug/dL (65-175); Total Iron Binding Capacity 215.0 ug/dL (250-425)
--- NOTE | 2024-12-03 12:31 | DVHSR ---
APPROVED REPORT EXAM: Two-dimensional and M-mode echocardiogram with Doppler and color Doppler. Blood Pressure: 109/56 mmHg INDICATION SOB, Bilateral leg swelling RISK FACTORS Height: 70, Weight: 225 DIMENSIONS LVDd4.8 (3.8-5.7cm)LA (2D) (1.9-4.0cm)Aortic Root4.4 (2.0-3.7cm) LVDs3.2 (2.5-4.0cm)LA (MM) (1.9-4.0cm)Aortic Cusp Exc2.3 (1.5-2.0cm) EF (%) 60.0 (55-70%)Rt. Atrium (1.9-4.0cm)Asc. Aorta cm Mitral Valve MitralMitral Stenosis E wave0.93m/sMV Mean GR.mmHg A wave1.10m/sMV Peak GR.mmHg E/A ratio0.82D MVAcm2 DECEL [id number] 1/2 Timems Aortic Valve Aortic ValveAortic Stenosis V11.53m/Magalys Mean GR.6mmHg V21.73m/Magalys Peak GR.12mmHg LVOT Diameter1.8 (1.8-2.4cm)Doppler AVA2.25cm2 Other Information Technically limited study due to body habitus and patient position. Patient was non compliant and ta lked on the phone the entire study. Conclusion lvef 60% RV enlarged, normal function abnormal interventricular septal bounce noted biatrial enlargement no severe valve abnormalities noted small to moderate pericardial effusion wiht significant fibrinous material within it, no tamponade ph ysiology
[2024-12-03] MEDS ORDERED: AZITHROMYCIN 500MG/ 250ML 250 ML IV SCH (16:00)
--- NOTE | 2024-12-03 16:06 | DVHPNRES ---
Progress Note Date Seen: Dec 03, 2024 Resident Creating Document: ILAN FALLON RESIDENT Medical Necessity Reason Pt with a Central, PICC or Fol: No Subjective Review of Systems Patient is 84 years old male with past medical history of hypertension, diabetes mellitus type 2, DVT, HFpEF, COPD, gout came with a complaint of cough with shortness of breaths for last 3 days. As per patient he has been having productive cough, yellowish phlegm for last 3 days associated with shortness of breaths especially with exertion. Patient also endorsed bilateral leg swelling for a while. Patient denied any chest pain, fever, palpitation, dysuria or change in vision. on arrival patient had a soft BP with 80/36. initial lab workup revealed Lactic acid 2.4>3.5,, WBC 8.2, hemoglobin 9.3, RDW 16.8, potassium 2.8, serum creatinine 1.35. Serum glucose 132, UDS negative, urinalysis negative for UTI, COVID and flu negative. CXR-Bibasilar subsegmental atelectasis. Right lower lobe opacity not entirely excluded. 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 Cardiovascular- deny acute chest pain or palpitation Gastrointestinal- denies any rectal bleeding, nausea or vomiting Musculoskeletal-denies acute joint swelling or tenderness or redness Neurological- denies acute dysarthria, dysphagia, change in vision Psychiatry- denies depression or SI or HI Skin- denies acute rash or purpura Patient was seen today at bedside. Labs and chart reviewed. Patient reported ongoing cough with mucus production with some shortness of breaths. Patient with bilateral leg edema+, Doppler study of the lower extremity revealed bilateral chronic lower extremity DVT. Objective vital signs Vital Sign Date Time Temp Pulse Resp B/P (MAP) Pulse Ox O2 Delivery O2 Flow Rate FiO2 12/03/24 13:00 98.0 79 18 120/72 (88) 99 98.0 12/03/24 11:46 Nasal Cannula 3.0 12/03/24 11:46 32 Total Intake and Output 12/02/24 12/02/24 12/03/24 15:00 23:00 07:00 Intake Total 300 ml 500 ml Output Total 500 ml Balance 300 ml 0 ml medications Current Medications Medications Dose Ordered Sig/Oralia Route Start Time Stop Time Status Last Admin Dose Admin Docusate Sodium 100 mg BIDPRN PRN PO 12/02/24 23:30 Acetaminophen 650 mg Q6HP PRN PO 12/02/24 23:30 Ceftriaxone Sodium 50 ml @ 100 mls/hr DAILY@09 IV 12/03/24 00:00 12/03/24 08:45 100 MLS/HR Albuterol 2.5 mg Q6HWA NEB 12/03/24 00:00 12/03/24 11:46 2.5 MG Ipratropium [place] 0.5 mg Q6HWA [facility] 12/03/24 00:00 12/03/24 11:46 0.5 MG Allopurinol 100 mg DAILY PO 12/03/24 10:00 12/03/24 08:51 100 MG Atorvastatin Calcium 80 mg HS PO 12/03/24 22:00 Omeprazole 20 mg DAILY PO 12/03/24 10:00 12/03/24 10:07 20 MG Baclofen 10 mg DAILY PO 12/03/24 10:00 12/03/24 08:51 10 MG Doxycycline Hyclate 100 ml @ 50 mls/hr Q12H IV 12/03/24 08:00 12/03/24 10:08 50 MLS/HR Sodium Chloride 1,000 ml @ 100 mls/hr Q10H IV 12/03/24 08:45 12/03/24 11:34 100 MLS/HR Warfarin Sodium 5 mg DAILY@1700 PO 12/03/24 17:00 Methylprednisolone Sodium Succinate 40 mg BID IV 12/03/24 22:00 Examination General examination- Awake, alert, obese HEENT- PEERLA, no acute nasal discharge Cardiovascular- S1-S2 audible, rate and rhythm regular, no murmur Respiratory- bilateral lung wheezing++, coarse sound Gastrointestinal-nontender, bowel sound+. Nondistended Musculoskeletal-no acute joint swelling or tenderness or redness Lower extremity- bilateral leg edema++, pigmentation Neurological- cranial nerves intact, no acute dysarthria or dysphagia Psychiatry- denies depression or SI or HI Skin- no acute rash or purpura laboratory and microbiology Laboratory Tests 12/03/24 06:00 Test 12/03/24 06:00 Range/Units Serum Glucose 197 H 74-106 mg/dL Microbiology Date/Time Source Procedure Growth Status 12/03/24 00:50 Nose MRSA Screen - Final Complete Problem List/Assessment/Plan Problem List/Assessment/Plan Assessment and plan # Acute hypoxic respiratory failure likely due to pneumonia Gram-positive versus Gram-negative # acute exacerbation of COPD likely due to pneumonia, - CXR- Bibasilar subsegmental atelectasis. Right lower lobe opacity not entirely excluded - pending blood culture, sputum culture, MRSA screening - continue ceftriaxone 1 g IV daily - continue doxycycline 100 mg IV b.i.d. - Solu-Medrol 40 mg IV b.i.d. - nebulization as prescribed - monitor CBC, CMP # sepsis likely due to pneumonia -- Bibasilar subsegmental atelectasis. Right lower lobe opacity not entirely excluded - pending blood culture, sputum culture, MRSA screening - continue ceftriaxone 1 g IV daily - continue doxycycline 100 mg IV b.i.d. - continue IV fluid as prescribed - Solu-Medrol 40 mg IV b.i.d. - nebulization as prescribed - monitor CBC, CMP # type 2 diabetes mellitus with the hypoglycemia -continue insulin Lantus as prescribed -insulin sliding scale as prescribed # lactic acidosis -ordered repeat lactic acid tonight -continue current IV fluid -continue current management # hypokalemia, replenished -monitor BMP # bilateral leg swelling rule out acute DVT/acute exertional CHF - Doppler study of the lower extremity revealed-Doppler study of the lower extremity revealed bilateral chronic lower extremity DVT. -continue with the warfarin as prescribed # history of DVT -Doppler study of the lower extremity revealed bilateral chronic lower extremity DVT. - on warfarin 5 mg p.o. daily -follow up with the INR # unintentional weight loss -ordered stool for occult blood test, iron profile, ferritin -follow up with the primary care physician for further evaluation and care as outpatient # gout-no acute exacerbation -continue current conservative management # obesity -patient is counseled about the effect of obesity on health, low-fat diet, weight reduction # anemia likely due to anemia of chronic disease - ordered iron profile, ferritin level - stool occult blood test Goals of care, Code status full code ; discussed with >15 minutes PUD prophylaxis: pantoprazole DVT prophylaxis: warfarin Plan discussed with Dr. Awad , nursing staff, Total time spent on patient evaluation, chart review, assessment and plan, discussion discussion >35 minutes Plan discussed with: Patient, Other (RN) My Orders My Orders Orders - ILAN FALLON Procedure Category Date Status Time Blood Culture JOANNA 12/03/24 In Process 07:00 Doxycycline PHA 12/03/24 In Process 100mg/100ml 08:00 Sodium Chloride 0.9% PHA 12/03/24 In Process 08:45 Bilat Lower Dvt US 12/03/24 Resulted 08:46 Stool Occult Blood LAB 12/03/24 Logged 09:40 Echo 2d Mode Cardiac US 12/03/24 Resulted DOP 10:38 Methylprednisolone PHA 12/03/24 In Process Sod Succ (Solu Medrol 22:00 Transfer Orders XFER 12/03/24 Transmitted 12:02 ILAN FALLON RESIDENT Dec 03, 2024 16:06
[2024-12-03 17:19] LABS: Lactic Acid w/Reflex 2.3 mmol/L (0.4-2.0)
[2024-12-03] MEDS: WARFARIN SODIUM 5 MG TAB PO SCH (17:46)
[2024-12-03] MEDS: methylPREDNISolone SOD SUCC 40 MG/ML VL IV SCH (21:19)
[2024-12-03] MEDS: ATORVASTATIN 20 MG TAB PO SCH (21:20)
[2024-12-04] VITALS (15 sets, daily range): BP systolic 118–136; BP diastolic 51–81; PULSE 60–73; RESP 16–18; TEMP 97.3–98.7; O2SAT 88–100
[2024-12-04 07:03] LABS: Nucleated Red Blood Cells % 0.1 %
[2024-12-04 07:06] LABS: Hematocrit 27.6 % (41.0-53.0); Mean Corpuscular Hemoglobin 33.7 pg (28.0-32.0); Mean Corpuscular Volume 99.5 fL (80.0-100.0)
[2024-12-04 07:15] LABS: Hemoglobin 9.3 g/dL (13.5-17.5)
[2024-12-04 07:18] LABS: Alkaline Phosphatase 92 U/L (46-116); Anion Gap 10 (5-15); BUN/Creatinine Ratio 13.1 (10.0-20.0); Blood Urea Nitrogen 16 mg/dL (9-23); Carbon Dioxide 29 mmol/L (20-31); Chloride 104 mmol/L (98-107); Sodium 143 mmol/L (136-145); Total Protein 6.2 g/dL (5.7-8.2)
[2024-12-04 07:25] LABS: Glucose 165 mg/dL (74-106); Potassium 3.4 mmol/L (3.5-5.1)
[2024-12-04 07:26] LABS: Alanine Aminotransferase < 9 U/L (7-40); Albumin 3.1 g/dL (3.2-4.8); Bilirubin, Total 0.2 mg/dL (0.2-1.0); Calcium 7.1 mg/dL (8.7-10.4); Magnesium 1.4 mg/dL (1.6-2.6)
[2024-12-04 07:45] LABS: INR 2.56 (0.9-1.15); Partial Thromboplastin Time 40.3 SEC (24.5-34.5); Prothrombin Time 24.7 sec (9.3-11.8)
[2024-12-04] MEDS: MAGNESIUM SULFATE 1GM/100ML 100 ML IV SCH (09:22)
[2024-12-04] MEDS: POTASSIUM CHL 20 Meq TABLET PO ONE (09:22)
[2024-12-04] MEDS: HYDROcodone-ACET 5/325MG TAB PO ONE (10:15)
[2024-12-04 10:34] LABS: Lactic Acid w/Reflex 2.7 mmol/L (0.4-2.0)
[2024-12-04] MEDS: IRON SUCROSE COMPLEX 110 ML IV SCH (12:28)
[2024-12-04] MEDS: SODIUM CHLORIDE 0.9% 1,000 ML IV ONE (12:28)
[2024-12-04] MEDS: WARFARIN SODIUM 5 MG TAB PO ONE (17:04)
--- NOTE | 2024-12-04 17:34 | DVHPNRES ---
Progress Note Date Seen: Dec 04, 2024 Resident Creating Document: ILAN FALLON RESIDENT Medical Necessity Reason Pt with a Central, PICC or Fol: No Subjective Review of Systems Patient is 84 years old male with past medical history of hypertension, diabetes mellitus type 2, DVT, HFpEF, COPD, gout came with a complaint of cough with shortness of breaths for last 3 days. As per patient he has been having productive cough, yellowish phlegm for last 3 days associated with shortness of breaths especially with exertion. Patient also endorsed bilateral leg swelling for a while. Patient denied any chest pain, fever, palpitation, dysuria or change in vision. on arrival patient had a soft BP with 80/36. initial lab workup revealed Lactic acid 2.4>3.5,, WBC 8.2, hemoglobin 9.3, RDW 16.8, potassium 2.8, serum creatinine 1.35. Serum glucose 132, UDS negative, urinalysis negative for UTI, COVID and flu negative. CXR-Bibasilar subsegmental atelectasis. Right lower lobe opacity not entirely excluded. 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 Cardiovascular- deny acute chest pain or palpitation Gastrointestinal- denies any rectal bleeding, nausea or vomiting Musculoskeletal-denies acute joint swelling or tenderness or redness Neurological- denies acute dysarthria, dysphagia, change in vision Psychiatry- denies depression or SI or HI Skin- denies acute rash or purpura Patient was seen today at bedside. Labs and chart reviewed. Patient reported feeling better today. Cough has improved. Patient is still wheezing bilaterally. On ceftriaxone and doxycycline and also methylprednisolone IV 40 mg b.i.d. blood culture no growth so far. MRSA screening negative. Sputum culture few Gram-positive cocci in pairs. Objective vital signs Vital Sign Date Time Temp Pulse Resp B/P (MAP) Pulse Ox O2 Delivery O2 Flow Rate FiO2 12/04/24 17:00 97.8 64 17 118/77 (91) 95 97.8 12/04/24 11:24 Nasal Cannula* 3 32 Total Intake and Output 12/03/24 12/03/24 12/04/24 15:00 23:00 07:00 Intake Total 1150 ml 1000 ml 500 ml Balance 1150 ml 1000 ml 500 ml medications Current Medications Medications Dose Ordered Sig/Oralia Route Start Time Stop Time Status Last Admin Dose Admin Docusate Sodium 100 mg BIDPRN PRN PO 12/02/24 23:30 Acetaminophen 650 mg Q6HP PRN PO 12/02/24 23:30 Ceftriaxone Sodium 50 ml @ 100 mls/hr DAILY@09 IV 12/03/24 00:00 12/04/24 08:23 100 MLS/HR Albuterol 2.5 mg Q6HWA NEB 12/03/24 00:00 12/04/24 11:24 2.5 MG Ipratropium [place] 0.5 mg Q6HWA NEB 12/03/24 00:00 12/04/24 11:24 0.5 MG Allopurinol 100 mg DAILY PO 12/03/24 10:00 12/04/24 08:24 100 MG Atorvastatin Calcium 80 mg HS PO 12/03/24 22:00 12/03/24 21:20 80 MG Omeprazole 20 mg DAILY PO 12/03/24 10:00 12/04/24 08:24 20 MG Baclofen 10 mg DAILY PO 12/03/24 10:00 12/04/24 08:24 10 MG Doxycycline Hyclate 100 ml @ 50 mls/hr Q12H IV 12/03/24 08:00 12/04/24 08:24 50 MLS/HR Sodium Chloride 1,000 ml @ 100 mls/hr Q10H IV 12/03/24 08:45 12/04/24 16:43 100 MLS/HR Methylprednisolone Sodium Succinate 40 mg BID IV 12/03/24 22:00 12/04/24 08:24 40 MG Warfarin Sodium RX PROTOCOL PER PHARMACY PO 12/03/24 17:30 Iron Sucrose 110 ml @ 110 mls/hr DAILY@1200 IV 12/04/24 12:00 12/05/24 12:59 12/04/24 12:28 110 MLS/HR Examination General examination- Awake, alert, obese HEENT- PEERLA, no acute nasal discharge Cardiovascular- S1-S2 audible, rate and rhythm regular, no murmur Respiratory- bilateral lung wheezing++, coarse sound Gastrointestinal-nontender, bowel sound+. Nondistended Musculoskeletal-no acute joint swelling or tenderness or redness Lower extremity- bilateral leg edema+, pigmentation+ Neurological- cranial nerves intact, no acute dysarthria or dysphagia Psychiatry- denies depression or SI or HI Skin- no acute rash or purpura laboratory and microbiology Laboratory Tests 12/04/24 05:59 Test 12/04/24 05:59 Range/Units Serum Glucose 165 H 74-106 mg/dL Microbiology Date/Time Source Procedure Growth Status 12/03/24 11:00 Sputum Gram Stain - Final Resulted 12/03/24 11:00 Sputum Respiratory Culture - Preliminary Resulted 12/03/24 08:55 Blood Blood Culture - Preliminary NO GROWTH AFTER 24 HOURS OF INCUBATION. Resulted 12/03/24 00:50 Nose MRSA Screen - Final Complete Problem List/Assessment/Plan Problem List/Assessment/Plan Assessment and plan # Acute hypoxic respiratory failure likely due to pneumonia Gram-positive versus Gram-negative # acute exacerbation of COPD likely due to pneumonia, - CXR- Bibasilar subsegmental atelectasis. Right lower lobe opacity not entirely excluded - blood culture no growth so far -MRSA screening negative -sputum culture few Gram-positive cocci in pairs - continue ceftriaxone 1 g IV daily - continue doxycycline 100 mg IV b.i.d. - Solu-Medrol 40 mg IV b.i.d. - nebulization as prescribed - monitor CBC, CMP # sepsis likely due to pneumonia -- Bibasilar subsegmental atelectasis. Right lower lobe opacity not entirely excluded - pending blood culture, sputum culture, MRSA screening - continue ceftriaxone 1 g IV daily - continue doxycycline 100 mg IV b.i.d. - continue IV fluid as prescribed - Solu-Medrol 40 mg IV b.i.d. - nebulization as prescribed - monitor CBC, CMP # type 2 diabetes mellitus with the hypoglycemia -continue insulin Lantus as prescribed -insulin sliding scale as prescribed # lactic acidosis -ordered repeat lactic acid tonight -continue current IV fluid -continue current management # hypokalemia, replenished -monitor BMP # bilateral leg swelling rule out acute DVT/acute exertional CHF - Doppler study of the lower extremity revealed-Doppler study of the lower extremity revealed bilateral chronic lower extremity DVT. -continue with the warfarin as prescribed # history of DVT -Doppler study of the lower extremity revealed bilateral chronic lower extremity DVT. - on warfarin 5 mg p.o. daily -follow up with the INR # unintentional weight loss -ordered stool for occult blood test, iron profile, ferritin -follow up with the primary care physician for further evaluation and care as outpatient # gout-no acute exacerbation -continue current conservative management # obesity -patient is counseled about the effect of obesity on health, low-fat diet, weight reduction # anemia likely due to anemia of chronic disease - ordered iron profile, ferritin level - stool occult blood test Goals of care, Code status full code ; discussed with >15 minutes PUD prophylaxis: pantoprazole DVT prophylaxis: warfarin Plan discussed with Dr. Awad , nursing staff, Total time spent on patient evaluation, chart review, assessment and plan, discussion discussion >35 minutes Plan discussed with: Patient, Other My Orders My Orders Orders - ILAN FALLON Procedure Category Date Status Time Iron Sucrose Complex [facility] 12/04/24 In Process (Venofer) 12:00 ILAN FALLON Dec 04, 2024 17:34
[2024-12-05] VITALS (13 sets, daily range): BP systolic 119–142; BP diastolic 54–77; PULSE 54–87; RESP 16–22; TEMP 97.3–98.7; O2SAT 92–99
[2024-12-05 06:26] LABS: Hematocrit 26.7 % (41.0-53.0); Hemoglobin 9.0 g/dL (13.5-17.5); Mean Corpuscular Hemoglobin 33.5 pg (28.0-32.0); Mean Corpuscular Volume 99.0 fL (80.0-100.0); Nucleated Red Blood Cells % 0.1 %
[2024-12-05 06:40] LABS: Chloride 106 mmol/L (98-107); Sodium 145 mmol/L (136-145)
[2024-12-05] MEDS: HYDROcodone-ACET 5/325MG TAB PO ONE (06:40)
[2024-12-05 06:41] LABS: Anion Gap 11 (5-15); Carbon Dioxide 28 mmol/L (20-31); INR 2.37 (0.9-1.15); Partial Thromboplastin Time 39.6 SEC (24.5-34.5); Prothrombin Time 23.1 sec (9.3-11.8)
[2024-12-05 06:47] LABS: BUN/Creatinine Ratio 16.2 (10.0-20.0); Blood Urea Nitrogen 18 mg/dL (9-23); Calcium 7.3 mg/dL (8.7-10.4); Glucose 142 mg/dL (74-106); Potassium 3.4 mmol/L (3.5-5.1)
[2024-12-05 06:48] LABS: Magnesium 1.5 mg/dL (1.6-2.6)
[2024-12-05] MEDS ORDERED: DOXY100C79 PO (09:52)
[2024-12-05] MEDS ORDERED: FURO1TAB31 PO (09:52)
[2024-12-05] MEDS ORDERED: AUG875T PO (09:52)
--- NOTE | 2024-12-05 09:55 | DVHDSRES ---
Discharge Summary Date of Admission Resident Creating Document: ILAN FALLON RESIDENT Dec 02, 2024 at 23:23 Date of Discharge: Dec 05, 2024 Admitting Diagnosis Suspected sepsis and Acute hypoxic respiratory failure likely due to pneumonia # Acute hypoxic respiratory failure likely due to pneumonia Gram-positive versus Gram-negative # acute exacerbation of COPD likely due to pneumonia, # sepsis likely due to pneumonia # type 2 diabetes mellitus with the hypoglycemia # lactic acidosis # hypokalemia, replenished # bilateral leg swelling rule out acute DVT/acute exertional CHF # history of DVT # unintentional weight loss-likely diuretic induced # gout-no acute exacerbation # obesity # anemia likely due to anemia of chronic disease Labs/Diagnostic Data: Laboratory Results Test 12/05/24 05:29 12/04/24 15:08 12/04/24 05:59 12/03/24 06:00 White Blood Count 9.1 10^3/uL (4.4-10.8) Red Blood Count 2.69 10^6/uL (4.5-5.90) Hemoglobin 9.0 g/dL (13.5-17.5) Hematocrit 26.7 % (41.0-53.0) Mean Corpuscular Volume 99.0 fL (80.0-100.0) Mean Corpuscular Hemoglobin 33.5 pg (28.0-32.0) Mean Corpuscular Hemoglobin Concent 33.9 g/dL (32.0-36.0) Red Cell Distribution Width 16.6 % (11.8-14.3) Platelet Count 224 10^3/uL (140-450) Mean Platelet Volume 8.0 fL (6.9-10.8) Neutrophils (%) (Auto) 88.7 % (37.0-80.0) Lymphocytes (%) (Auto) 8.7 % (10.0-50.0) Monocytes (%) (Auto) 2.6 % (0.0-12.0) Eosinophils (%) (Auto) 0.0 % (0.0-7.0) Basophils (%) (Auto) 0.0 % (0.0-2.0) Neutrophils # (Auto) 8.1 10 ^3/uL (1.6-8.6) Lymphocytes # (Auto) 0.8 10 ^3/uL (0.4-5.4) Monocytes # (Auto) 0.2 10 ^3/uL (0-1.3) Eosinophils # (Auto) 0 10 ^3/uL (0-0.8) Basophils # (Auto) 0 10 ^3/uL (0-0.2) Nucleated Red Blood Cells 0.1 % Prothrombin Time 23.1 sec (9.3-11.8) Prothrombin Time INR 2.37 (0.9-1.15) Activated Partial Thromboplast Time 39.6 SEC (24.5-34.5) Sodium Level 145 mmol/L (136-145) Potassium Level 3.4 mmol/L (3.5-5.1) Chloride Level 106 mmol/L (98-107) Carbon Dioxide Level 28 mmol/L (20-31) Anion Gap 11 (5-15) Blood Urea Nitrogen 18 mg/dL (9-23) Creatinine 1.11 mg/dL (0.700-1.30) Glomerular Filtration Rate Calc 66 mL/min (>90) BUN/Creatinine Ratio 16.2 (10.0-20.0) Serum Glucose 142 mg/dL (74-106) Calcium Level 7.3 mg/dL (8.7-10.4) Magnesium Level 1.5 mg/dL (1.6-2.6) Lactic Acid Level 1.6 mmol/L (0.4-2.0) Total Bilirubin 0.2 mg/dL (0.2-1.0) Aspartate Amino Transferase (AST) 22 U/L (13-40) Alanine Aminotransferase (ALT) < 9 U/L (7-40) Alkaline Phosphatase 92 U/L (46-116) Total Protein 6.2 g/dL (5.7-8.2) Albumin 3.1 g/dL (3.2-4.8) Hemoglobin A1c 5.8 % A1C (<5.7) Iron Level 42 ug/dL (65-175) Total Iron Binding Capacity 215 ug/dL (250-425) Percent Iron Saturation 19.5 % (20-55) Ferritin 594.8 ng/mL (22-322) B-Type Natriuretic Peptide 315.36 pg/mL (0-100) Vitamin B12 Level 736 pg/mL (211-911) Vitamin D 25-Hydroxy 49.5 ng/mL (30.0-100) Folic Acid 4.29 ng/mL (>5.38) Thyroid Stimulating Hormone (TSH) 0.11 uIU/mL (0.55-4.78) Free Thyroxine (T4) Calculated 0.99 ng/dL (0.89-1.76) Free Triiodothyronine (T3) pg/mL 1.79 pg/mL (2.3-4.2) Test 12/03/24 05:55 12/02/24 15:56 12/02/24 15:23 12/02/24 14:03 Urine Opiates Screen Neg (NEGATIVE) Urine Fentanyl Screen Neg (NEGATIVE) Urine Barbiturates Screen Neg (NEGATIVE) Urine Phencyclidine Screen Neg (NEGATIVE) Urine Amphetamines Screen Neg (NEGATIVE) Urine Benzodiazepines Screen Neg (NEGATIVE) Urine Cocaine Screen Neg (NEGATIVE) Urine Cannabinoids Screen Neg (NEGATIVE) Troponin I High Sensitivity 32 ng/L (</=54) Influenza Type A Antigen Negative (Negative) Influenza Type B Antigen Negative (Negative) SARS-CoV-2 Antigen (Rapid) Negative (NEGATIVE) Urine Color Yellow (Yellow) Urine Clarity Clear (Clear) Urine pH 6.5 (5.0-9.0) Urine Specific [place] 1.017 (1.001-1.035) Urine Protein Trace (Negative) Urine Ketones Negative (Negative) Urine Blood Negative /uL (Negative) Urine Nitrite Negative (Negative) Urine Bilirubin Negative (Negative) Urine Urobilinogen Normal mg/dL (Negative) Urine Leukocyte Esterase Negative /uL (Negative) Urine RBC 1 /hpf (0 - 3) Urine Microscopic WBC 2 /HPF (0-3) Urine Squamous Epithelial Cells Few /hpf (<5) Urine Bacteria None seen /hpf (None Seen) Urine Glucose Normal mg/dL (Normal) Other Laboratory Tests 12/05/24 05:29 Brief Hx & Hospital Course: Patient is 84 years old male with past medical history of hypertension, diabetes mellitus type 2, DVT, HFpEF, COPD, gout came with a complaint of cough with shortness of breaths for last 3 days. As per patient he has been having productive cough, yellowish phlegm for last 3 days associated with shortness of breaths especially with exertion. Patient also endorsed bilateral leg swelling for a while. Patient denied any chest pain, fever, palpitation, dysuria or change in vision. on arrival patient had a soft BP with 80/36. initial lab workup revealed Lactic acid 2.4>3.5,, WBC 8.2, hemoglobin 9.3, RDW 16.8, potassium 2.8, serum creatinine 1.35. Serum glucose 132, UDS negative, urinalysis negative for UTI, COVID and flu negative. CXR-Bibasilar subsegmental atelectasis. Right lower lobe opacity not entirely excluded. Hospital course-during hospital course patient was treated with IV antibiotic ceftriaxone and doxycycline. Patient also had IV methylprednisolone. Blood culture negative, MRSA negative. Patient's symptoms improved clinically. Patient breathing well in room air. Patient's cough has improved, no more phlegm production. Patient is being discharged to SNF for physical therapy. Patient is hemodynamically stable on discharge. # Acute hypoxic respiratory failure likely due to pneumonia Gram-positive versus Gram-negative # acute exacerbation of COPD likely due to pneumonia, # sepsis likely due to pneumonia # type 2 diabetes mellitus with the hypoglycemia # lactic acidosis # hypokalemia, replenished # bilateral leg swelling rule out acute DVT/acute exertional CHF # history of DVT # unintentional weight loss-likely diuretic induced # gout-no acute exacerbation # obesity # anemia likely due to anemia of chronic disease Plan Discharge patient to SNF for PT Continue current medications Please follow up with the MD at SNF Please follow up with the inspector experimental assembly and willow analyst following discharge. Operations or Procedures [place] [id number] Ph: [phone] DIAGNOSTIC IMAGING Diagnostic Imaging Report : [id number] Signed PATIENT: YOVANY CURIEL ALANACCT: [id number] UNIT: [id number] : 1940 LOC: ER ROOM / BED: / AGE / SEX: 84 / M ADM STATUS: REG ER SERVICE 1248 ORDERING PHYSICIAN: MARK MAY MD PROCEDURE(s): CXRP - CHEST PORTABLE REASON: sob ORDER NUMBER(s): [id number], ACCESSION NUMBER(s): [id number] CHEST RADIOGRAPH Indication: sob Technique: Single frontal view of the chest was obtained Comparison: XY CHEST XRAY 1 VIEW on DOS: 01/16/24, XY CHEST PORTABLE on DOS: 01/10/24, XR CHEST 1 VIEW on DOS: 10/03/23, XR CHEST 1 VIEW on DOS: 12/30/22 FINDINGS: Lines and Tubes: None Lungs: Bibasilar subsegmental atelectasis. Right lower lobe opacity not entirely excluded. Pleura: No effusion. No pneumothorax. Cardiomediastinal contours: Unremarkable Bones: No acute osseous abnormality. IMPRESSION: 1. Bibasilar subsegmental atelectasis. 2. Right lower lobe opacity not entirely excluded. ATED BY: SABINO KLEIN MD DICTATED DATE/TIME: 12/02/24 1354 SIGNED BY: SABINO KLEIN MD SIGNED DATE/TIME: 12/02/24 135 CC: [place] [phone] Ph: [phone] DIAGNOSTIC IMAGING Diagnostic Imaging Report : [id number] Signed PATIENT: YOVANY CURIEL ALANACCT: [id number] UNIT: [id number] : 1940 LOC: [facility] ROOM / BED: [address] [place] [address] AGE / SEX: 84 / M ADM STATUS: ADM IN SERVICE 5 ORDERING PHYSICIAN: ILAN FALLON RESIDENT PROCEDURE(s): BLDVT - BiLat Lower DVT REASON: b/l leg swelling ORDER NUMBER(s): [id number], ACCESSION NUMBER(s): [id number] Bilateral lower extremity venous duplex Clinical History: b/l leg swelling Comparison: CT LOWER EXTREMITY NON JOINT RIGH on DOS: 01/11/24, US BILAT LOWER DVT on DOS: 01/10/24 Technique: Duplex Doppler evaluation of the deep venous systems of both lower extremities from the common femoral veins to the popliteal veins including color Doppler and spectral/pulsed waveform analysis was performed. Findings: RIGHT SIDE: The common femoral vein demonstrates appropriate compressibility and waveform variability. There is compressibility/patency of the great saphenous vein at the proximal thigh. Chronic thrombus in the right mid and distal femoral vein. The deep femoral vein demonstrates appropriate compressibility and waveform variability. The popliteal vein demonstrates probable chronic thrombus in the popliteal vein. There is normal compressibility at the tibioperoneal trunk. LEFT SIDE: The common femoral vein demonstrates appropriate compressibility and waveform variability. There is compressibility/patency of the great saphenous vein at the proximal thigh. The femoral vein demonstrates probable chronic thrombus in the mid femoral vein. The deep femoral vein demonstrates appropriate compressibility and waveform variability. The popliteal vein demonstrates probable chronic thrombus in the popliteal vein. There is normal compressibility at the tibioperoneal trunk. Impression: No right or left acute femoropopliteal venous thrombosis. Probable chronic thrombus involving the right mid and distal femoral vein and popliteal vein. Probable chronic thrombus in the mid left femoral vein and popliteal vein. ATED BY: REYNOLD MILLER MD DICTATED DATE/TIME: 12/03/24 110 SIGNED BY: REYNOLD MILLER MD SIGNED DATE/TIME: 12/03/24 110 CC: Condition at Discharge: Stable Final Diagnosis/Problems List # Acute hypoxic respiratory failure likely due to pneumonia Gram-positive versus Gram-negative # acute exacerbation of COPD likely due to pneumonia, # sepsis likely due to pneumonia # type 2 diabetes mellitus with the hypoglycemia # lactic acidosis # hypokalemia, replenished # bilateral leg swelling rule out acute DVT/acute exertional CHF # history of DVT # unintentional weight loss-likely diuretic induced # gout-no acute exacerbation # obesity # anemia likely due to anemia of chronic disease Discharge Disposition: Alf Facility Discharge Instruct/Medications Follow Up/Referral: As above Medications: As above Scheduled Allopurinol (Allopurinol), 1 TAB PO DAILY, (Reported) Amlodipine Besylate (Amlodipine Besylate), 1 TAB PO DAILY, (Reported) Amoxicillin & Pot Clavulanate (Augmentin Tablet), 875 MG PO BID Atorvastatin Calcium (Lipitor), 1 TAB PO DAILY, (Reported) Baclofen (Baclofen), 1 TAB PO Q8HR, (Reported) Cholecalciferol (Gnp Vitamin D), 1 TAB PO DAILY, (Reported) Clindamycin Hcl (Clindamycin Hcl), 300 MG PO QID Doxycycline (Monohydrate) (Doxycycline), 100 MG PO BID Trksxfjsbuk-Sqewxqwzxbnf-Busae (Trelegy Ellipta 100-62.5-25 Mcg/INH), 1 PUFF IN DAILY, (Reported) Furosemide (Furosemide 80 mg), 1 TAB PO BID, (Reported) Furosemide (Lasix), 40 MG PO DAILY Metolazone (Metolazone), 1 TAB PO DAILY, (Reported) Naloxegol Oxalate (Movantik), 1 TAB PO DAILY, (Reported) Oxycodone HCl (Oxycontin), 1 TAB PO BID, (Reported) Potassium Chloride (Potassium Chloride ER), 2 TAB PO BID, (Reported) Prednisone (Prednisone), 40 MG PO DAILY Warfarin Sodium (Warfarin Sodium), 1 TAB PO DAILY, (Reported) Scheduled PRN Spironolactone (Spironolactone), 1 TAB PO DAILY PRN for bid, (Reported) Discharge Statement: "Patient was advised to return to the ER or call 911 if any headaches, dizziness, shortness of breath, chest pain, abdominal pain, bleeding, fevers, or worsening of medical condition. Patient was counseled about treatment plan, medications, possible side effects, patientverbalized understanding. All questions were answered to the best of my ability. This discharge took greater then 30 minutes in planning, reviewing documentation, counseling the patient, and discussing with other team members." ASSESSMENT ASSESSMENT Assessment ILAN FALLON RESIDENT Dec 05, 2024 09:55
[2024-12-05] MEDS ORDERED: PRED20TA2 PO (10:24)
[2024-12-05] MEDS: WARFARIN SODIUM 5 MG TAB PO ONE (16:27)
[2024-12-05] MEDS: OXYCODONE W/ ACETAMINOPHEN 5/325MG TABLET PO PRN (16:32)
[2024-12-05 21:39] LABS: Urine Protein, UAD Negative (Negative)
--- NOTE | 2024-12-06 13:23 | ECG ---
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
== END 2024-12-05 21:00 | DRG 871 ==
LOC: ER 12:28 → OVERFLOW 23:23 → CENTRAL 23:57 → TELE-CENTR 12-03 09:23 → CENTRAL 12-05 04:22
PROVIDERS: ADMIT Student in an Organized Health Care Education/Training Program; ATTEND Student in an Organized Health Care Education/Training Program
DX: A41.59 Other Gram-negative sepsis (principal); J15.69 Pneumonia due to other Gram-negative bacteria; J15.9 Unspecified bacterial pneumonia; J96.01 Acute respiratory failure with hypoxia; J44.1 Chronic obstructive pulmonary disease with (acute) exacerbation; I50.32 Chronic diastolic (congestive) heart failure; Z59.00 Homelessness unspecified; E87.20 Acidosis, unspecified; J44.0 Chronic obstructive pulmonary disease with (acute) lower respiratory infection; N17.9 Acute kidney failure, unspecified; I95.9 Hypotension, unspecified; E11.649 Type 2 diabetes mellitus with hypoglycemia without coma; E87.6 Hypokalemia; E83.51 Hypocalcemia; I11.0 Hypertensive heart disease with heart failure; M10.9 Gout, unspecified; J98.4 Other disorders of lung; E66.9 Obesity, unspecified; D63.8 Anemia in other chronic diseases classified elsewhere; Z79.01 Long term (current) use of anticoagulants; Z79.2 Long term (current) use of antibiotics; Z79.899 Other long term (current) drug therapy; Z68.32 Body mass index [BMI] 32.0-32.9, adult
CPT/HCPCS: 36415; 71045; 80048; 80053; 80307; 81001; 82306; 82607; 82728; 82746; 83036; 83540; 83550; 83605; 83735; 83880; 84439; 84443; 84481; 84484; 85025; 85610; 85730; 87040; 87070; 87081; 87205; 87426; 87804; 93005; 93306; 93970; 94640; 96365; 96366; 99291; G0378; J1756; J3480